=== PATIENT | female | born 1955 | race Caucasian/White ===

== ENCOUNTER 2018-01-18 13:55 | Observation (INO) ==
--- NOTE | 2018-01-18 14:19 | Emergency Department Note ---
ED Disposition Clinical Impression: Syncope Qualifiers: Syncope type: unspecified Qualified Code(s): R55 - Syncope and collapse Disposition: Admitted As Inpatient Condition on Discharge: Good - Critical Care Critical Care Time: No Attestation: On 01/18/18, the high probability of a clinically significant, sudden or life threatening deterioration of the following system(s) required my full and direct attention, intervention and personal management. The time I documented below is in addition to time spent performing reported procedures but includes the following listed in this critical care notation. Medical Decision Making - Medical Records Medical records reviewed: Yes: I reviewed the patient's medical records. - Pete Inquiry Pt receiving controlled substance: No Pete was queried for this patient: No Vital Signs: 01/18/18 13:56 01/18/18 15:03 01/18/18 15:30 Temperature 98.1 F Temperature Source Oral Pulse Rate [Right Brachial] 83 84 78 Respiratory Rate 18 20 18 Blood Pressure [Right Arm] 138/83 119/71 138/82 Blood Pressure Mean [Right Arm] 101 87 100 Blood Pressure Source [Right Arm] Automatic Cuff Automatic Cuff Automatic Cuff Blood Pressure Position [Right Arm] Supine Sitting Sitting 02 Sat by Pulse Oximetry 95 98 97 Oxygen Delivery Method Room Air Room Air Room Air - Lab Data Lab Results 01/18/18 14:15: WBC 6.7, RBC 5.23, Hgb 15.0, Hct 44.5, MCV 85.2, MCH 28.7, MCHC 33.7, RDW 13.7, Plt Count 216, MPV 8.9, Neut % (Auto) 62.9, Lymph % (Auto) 24.8 , [place] % (Auto) 9.5 H, Eos % (Auto) 1.8, Baso % (Auto) 0.9, Neut # (Auto) 4.2, Lymph # (Auto) 1.7, [place] # (Auto) 0.6, Eos # (Auto) 0.1, Baso # (Auto) 0.1 01/18/18 14:15: Sodium 136, Potassium 3.7, Chloride 100, Carbon Dioxide 27, Anion Gap 12.7, BUN 11, Creatinine 1.26 H, Estimated Creat Clear 78, Estimated GFR 43 L, Est GFR ( Amer) 52 L, Glucose 82, Calcium 9.6, Total Bilirubin 1.1 H, AST 45 H, ALT 29, Alkaline Phosphatase 108, Total Protein 7.5, Albumin 3.5, Globulin 4.0 H, Albumin/Globulin Ratio 0.9 L 01/18/18 14:15: Total Creatine Kinase 371 H, CK-MB (CK-2) 1.9, CK-MB (CK-2) Rel Index 0.5, Troponin I < 0.02 Result diagrams: 01/18/18 14:15 01/18/18 14:15 Orders (Tests/Meds): ED MEDICATIONS Generic Name Dose Route Start Last Admin Trade Name Freq PRN Reason Stop Dose Admin Potassium Chloride/Sodium Chloride 1,000 mls @ 75 mls/hr 01/18/18 16:30 Kcl 20 Meq In Ns 1,000 Ml Iv Soln IV 02/17/18 16:29 .[id number] FRANCOIS - Radiology Data #1 Image(s): Chest Image Reviewed: Yes I reviewed the patient's radiology results Preliminary Findings: Normal/NAD - CT Data CT Scan: Head, C-Spine Time Received: 15:[address] Reviewed: Yes: I have viewed the radiologist's interpretation Preliminary Findings: Normal/NAD - ECG Data Tracing #1 ECG initial impression date: 01/18/18 ECG initial impression time: 16:00 Normal Sinus Rhythm: Yes Ischemic changes: t wave inversions - Physician Consults Physician Consulted: Dr Kaufman Reason -: Admission Time: 16:24 Fall HPI - General Chief Complaint: Fall Stated Complaint: fall Time Seen by Provider: 01/18/18 16:24 Mode of Arrival: EMS Limitations: No Limitations Description of Symptoms (Recalled from ER Triage Doc. by RN): Pt fell at home lastnight at unknown time, pt reports her friend came over to check on her and found her in the floor. Pt reports she hurting all over especially her head. Pt reports she does not remember falling - History of Present Illness MD complaint: fall Onset (ago): day(s) (1) Fall from: standing Fall witnessed: no Place fall occurred: home Loss of consciousness: yes Prolonged down time: yes Symptoms prior to fall: none Location of injury: head, neck Severity: mild - Related Data Allergies Allergy/AdvReac Type Severity Reaction Status Date / Time Erythromycin Allergy Unknown Uncoded 09/01/17 14:59 From Penicillin V Potassium Allergy Unknown Uncoded 09/01/17 14:59 Penicillin Allergy Unknown Uncoded 09/01/17 14:59 [facility] History I have reviewed the patient's past medical history: Yes ROS Obtained: Yes All systems reviewed & no additional complaints - Musculoskeletal Musculoskeletal: Reports neck pain Physical Exam - General General appearance: alert, in no apparent distress - Head Head exam: atraumatic, normocephalic - Eye Eye exam: Present: normal appearance, PERRL, EOMI - ENT ENT exam: Present: normal exam - Chest Chest inspection: Present: normal inspection - Respiratory Respiratory exam: Present: normal lung sounds bilaterally. Absent: respiratory distress, wheezes - Cardiovascular Cardiovascular exam: Present: regular rate, normal rhythm - Abdominal Exam Abdominal exam: Present: soft. Absent: distention, tenderness - Extremities Exam Extremities exam: Present: normal inspection - Neurological Exam Neurological exam: Present: alert, oriented X3 - Skin Skin exam: Present: warm, dry, intact, normal color
[2018-01-18 14:29] LABS: Basophils # 0.1 K/mm3 (0-0.2); Basophils % 0.9 % (0.1-2.0); Eosinophils # 0.1 K/mm3 (0.0-0.4); Eosinophils % 1.8 % (0.1-12.0); Hematocrit 44.5 % (37.0-47.0); Lymphocytes # 1.7 K/mm3 (0.7-4.5); Lymphocytes % 24.8 K/mm3 (10-50); Mean Corpuscular HGB Conc 33.7 g/dL (31.8-35.4); Mean Corpuscular Hemoglobin 28.7 pg (27.0-31.2); Mean Corpuscular Volume 85.2 fl (81-99); Mean Platelet Volume 8.9 fl (7.4-10.4); Monocytes # 0.6 K/mm3 (0.1-1.0); Monocytes % 9.5 % (1.7-9.3); Neutrophils # 4.2 K/mm3 (1.8-7.8); Neutrophils % 62.9 % (37.0-80.0); Platelet Count 216 K/mm3 (142-424); Red Blood Count 5.23 M/mm3 (4.20-5.40); Red Cell Distribution Width 13.7 % (11.5-17.5); White Blood Count 6.7 K/mm3 (4.8-10.8)
[2018-01-18 14:53] LABS: Albumin Level 3.5 gm/dL (3.4-5.0); Albumin/Globulin Ratio 0.9 (1.1-1.8); Anion Gap 12.7 mEq/L (5-15); Bilirubin,Total 1.1 mg/dL (0.2-1.0); Calcium 9.6 mg/dL (8.5-10.1); Total Protein,Serum 7.5 gm/dL (6.4-8.2)
[2018-01-18 14:54] LABS: Potassium 3.7 mmoL/L (3.5-5.1)
[2018-01-18 14:55] LABS: Creatine Kinase 371 U/L (26-192)
[2018-01-18 17:15] LABS: Activated Partial Thrombo Time 33.4 seconds (23.6-34.0); INR 1.02 (0.9-1.1)
[2018-01-18 17:28] LABS: Creatine Kinase 334 U/L (26-192)
--- NOTE | 2018-01-18 17:40 | History & Physical Report ---
*Admission Date: 01/18/18 <Candy Owen 01/18/18 18:13> *Chief complaint: Fall <Candy Owen 01/18/18 18:13> *History of present illness: Ms Biggs is a 62 year old female with a history of HTN and Fibromyalgia who presented to [facility] ER via EMS after falling at home last night at an unknown time.. She tried to get up and was unable to do so. She cannot recall why she fell. She reports her friend came over to check on her and found her face down on the floor. Pt reports she is hurting all over and especially her head. She cannot remember having CP or SOB. She does not recall anything from the past few days. At the time of this exam she states her sides and knees are hurting. She deneis CP and SOB. With ER work up CT's are negative. She will admitted for further evaluation and treatment. <Candy Owen 01/18/18 18:13> [facility] History Medical History: Reports:: Cancer (brain and lung), Hypertension, Lung Disease Denies:: Asthma, Atherosclerotic Heart Disease, Congestive Heart Failure, Chronic Obstructive Pulmonary Disease (COPD), Coronary Artery Disease, Cerebrovascular Accident, Diabetes Mellitus Type 2, Gastroesophageal Reflux Disease(GERD), Gastrointestinal Bleed, Hyperlipidemia, Palpitations, Renal Insufficiency, Seizures <Candy Owen 01/18/18 18:13> Other Medical History: Reports: Arthritis, Chemotherapy, Fibromyalgia <Candy Owen 01/18/18 18:13> Comment: 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 She has been followed by her Kenny in [facility] with regular PET scans and has been cancer free <Candy Owen 01/18/18 18: 13> Other Surgeries: Yes: Appendectomy, Cancer Surgery, Cholecystectomy, Hysterectomy-Total (for endometriosis) <Candy Owen 01/18/18 18:13> - *Social History Educational Level: Completed College <Candy Owen 01/18/18 18:13> Tobacco Type: e-cigarettes <Candy Owen 01/18/18 18:13> Alcohol Intake: never <Candy Owen 01/18/18 18:13> Substance Use Type: denies use <Sheri Owenhy 01/18/18 18:13> Occupational Status: retired <BraydenCandy 01/18/18 18:13> Housing: house (lives alone) <Candy Owen 01/18/18 18:13> - Psychiatric History Expresses thoughts of harming self/others: None <Candy Owen 01/18/18 18: 13> Suicide Plan Description: No Plan <Candy Owen 01/18/18 18:13> *Family Hx:: Diabetes, no Coronary Artery Disease <Candy Owen 01/18/18 18 :13> Review of Systems - Constitutional Reports headache(s), Denies fever(s) <Candy Owen 01/18/18 18:13> - ENT Reports headache(s), Denies dizziness, Denies ear pain, Denies sore throat < Candy Owen 01/18/18 18:13> - *Cardiovascular Denies chest pain, Denies chest pain with activity, Denies shortness of breath, Denies irregular heart rhythm, Denies shortness of breath when lying down, Denies rapid, pounding, or irregular heartbeat <Candy Owen 01/18/18 18:13 > - *Respiratory Denies cough, Denies shortness of breath <Sheri Owenhy 01/18/18 18:13> - *Gastrointestinal Denies abdominal pain, Denies change in stools, Denies heartburn, Denies vomiting blood, Denies bright, red blood in stools, Denies black, tarry stools, Denies nausea, Denies vomiting <Candy Owen 01/18/18 18:13> - *Genitourinary Reports absent period, Reports urinary urgency, Reports other (urinary frequency ), Denies blood in urine, Denies pelvic pain <Candy Owen 01/18/18 18:13> - *Musculoskeletal Reports joint pain, Reports body aches (with FBM) <Candy Owen 01/18/18 18 :13> Comments: walks with a walker when tired <Candy Owen 01/18/18 18:13> - *Neurologic Reports headache(s), Reports memory loss, Reports weakness, Denies dizziness < Candy Owen - 01/18/18 18:13> Meds Allergies Allergy/AdvReac Type Severity Reaction Status Date / Time Erythromycin Allergy Unknown Uncoded 09/01/17 14:59 From Penicillin V Potassium Allergy Unknown Uncoded 09/01/17 14:59 Penicillin Allergy Unknown Uncoded 09/01/17 14:59 <Mukesh Kaufman - 01/18/18 20:08> Exam Vital signs and Labs for Last 24 Hours: Temp Pulse Resp BP Pulse Ox 97.9 F 87 18 98/81 96 01/18/18 17:42 01/18/18 17:42 01/18/18 17:42 01/18/18 17:42 01/18/18 17:42 Laboratory Results - last 24 hr 01/18/18 14:15: WBC 6.7, RBC 5.23, Hgb 15.0, Hct 44.5, MCV 85.2, MCH 28.7, MCHC 33.7, RDW 13.7, Plt Count 216, MPV 8.9, Neut % (Auto) 62.9, Lymph % (Auto) 24.8 , [place] % (Auto) 9.5 H, Eos % (Auto) 1.8, Baso % (Auto) 0.9, Neut # (Auto) 4.2, Lymph # (Auto) 1.7, [place] # (Auto) 0.6, Eos # (Auto) 0.1, Baso # (Auto) 0.1 01/18/18 14:15: Sodium 136, Potassium 3.7, Chloride 100, Carbon Dioxide 27, Anion Gap 12.7, BUN 11, Creatinine 1.26 H, Estimated Creat Clear 78, Estimated GFR 43 L, Est GFR ( Amer) 52 L, Glucose 82, Calcium 9.6, Total Bilirubin 1.1 H, AST 45 H, ALT 29, Alkaline Phosphatase 108, Total Protein 7.5, Albumin 3.5, Globulin 4.0 H, Albumin/Globulin Ratio 0.9 L 01/18/18 14:15: Total Creatine Kinase 371 H, CK-MB (CK-2) 1.9, CK-MB (CK-2) Rel Index 0.5, Troponin I < 0.02 01/18/18 17:00: PT 11.0, INR 1.02, APTT 33.4 01/18/18 17:00: Total Creatine Kinase 334 H, CK-MB (CK-2) 1.8, CK-MB (CK-2) Rel Index 0.5, Troponin I < 0.02 <LaneMukesh humphries - 01/18/18 20:08> Temp Pulse Resp BP Pulse Ox 97.9 F 85 18 105/73 97 01/18/18 17:09 01/18/18 17:09 01/18/18 17:09 01/18/18 17:09 01/18/18 15:30 Laboratory Results - last 24 hr 01/18/18 14:15: WBC 6.7, RBC 5.23, Hgb 15.0, Hct 44.5, MCV 85.2, MCH 28.7, MCHC 33.7, RDW 13.7, Plt Count 216, MPV 8.9, Neut % (Auto) 62.9, Lymph % (Auto) 24.8 , [place] % (Auto) 9.5 H, Eos % (Auto) 1.8, Baso % (Auto) 0.9, Neut # (Auto) 4.2, Lymph # (Auto) 1.7, [place] # (Auto) 0.6, Eos # (Auto) 0.1, Baso # (Auto) 0.1 01/18/18 14:15: Sodium 136, Potassium 3.7, Chloride 100, Carbon Dioxide 27, Anion Gap 12.7, BUN 11, Creatinine 1.26 H, Estimated Creat Clear 78, Estimated GFR 43 L, Est GFR ( Amer) 52 L, Glucose 82, Calcium 9.6, Total Bilirubin 1.1 H, AST 45 H, ALT 29, Alkaline Phosphatase 108, Total Protein 7.5, Albumin 3.5, Globulin 4.0 H, Albumin/Globulin Ratio 0.9 L 01/18/18 14:15: Total Creatine Kinase 371 H, CK-MB (CK-2) 1.9, CK-MB (CK-2) Rel Index 0.5, Troponin I < 0.02 01/18/18 17:00: PT 11.0, INR 1.02, APTT 33.4 01/18/18 17:00: Total Creatine Kinase 334 H, CK-MB (CK-2) 1.8, CK-MB (CK-2) Rel Index 0.5, Troponin I < 0.02 <BraydenCandy 01/18/18 18:13> I & O for Last 24 hours: Intake & Output 01/16/18 01/17/18 01/18/18 01/19/18 11:59 11:59 11:59 11:59 Weight 220 lb 4 oz <Mukesh Kaufman - 01/18/18 20:08> Intake & Output 01/16/18 01/17/18 01/18/18 01/19/18 11:59 11:59 11:59 11:59 Weight 230 lb <Candy Owen - 01/18/18 18:13> Radiology Reports for the Last 24 Hours: 01/18/18 CT of cervical spine IMPRESSION: 1. No acute fracture. 2. Multilevel cervical spondylosis with degenerative disc disease, facet and uncovertebral arthritic changes with lateral recess and foraminal narrowing as detailed above, canal stenosis at C5-C6 and C6-C7 worse at C6-C7 01/18/18 CXR IMPRESSION: No acute finding 01/18/18 CT of head/brain MPRESSION: 1. No acute finding. 2. Atrophy with chronic ischemic change. 3. Prior left occipital craniotomy with encephalomalacia change in the left cerebellar hemisphere X-ray of pelvis01/18/18 IMPRESSI ON: No acute finding <OwenCandy 01/18/18 18:13> - Constitutional no acute distress <Candy Owen 01/18/18 18:13> Comments: lying on stretcher and appears comfortable <Candy Owen 01/18/18 18:13> - *Routine HEENT Exam Head: Present: normocephalic, atraumatic <Candy Owen 01/18/18 18:13> Eye: Present: EOMI, PERRL. Absent: conjunctival icterus, scleral injection < Candy Owen 01/18/18 18:13> ENT: Present: mucous membranes moist, oropharynx clear <Candy Owen 18:13> - *Routine Neck Exam Present: supple. Absent: carotid bruit, lymphadenopathy, thyromegaly <Candy Owen 01/18/18 18:13> - *Routine Respiratory Exam Present: CTA bilaterally <Candy Owen - 01/18/18 18:13> - *Routine Cardiovascular Exam Present: RRR <Candy Owen 01/18/18 18:13> - *Routine Abdominal Exam Present: soft, normoactive bowel sounds, tenderness (SP). Absent: guarding < Candy Owen 01/18/18 18:13> - *Routine Extremities Exam Absent: edema, calf tenderness <Candy Owen 01/18/18 18:13> Comments: can barely lift bilaterl legs off the stretcher <Candy Owen 01/18/18 18:13> - *Routine Neurological Exam Present: alert, oriented X3, sensory deficit, motor deficit, plantar reflex, moving all extremities, normal speech (slow at times) <Candy Owen 18:13> memory loss <Candy Owen 01/18/18 18:13> H&P: Result - Labs Labs: Short CBC 01/18/18 Range/Units 14:15 WBC 6.7 (4.8-10.8) K/mm3 Hgb 15.0 (12.2-16.2) g/dL Hct 44.5 (37.0-47.0) % Plt Count 216 (142-424) K/mm3 BMP 01/18/18 14:15 Sodium 136 Potassium 3.7 Chloride 100 Carbon Dioxide 27 BUN 11 Creatinine 1.26 H Glucose 82 Calcium 9.6 Cardiac Enzymes 01/18/18 01/18/18 Range/Units 14:15 17:00 Total Creatine Kinase 371 H 334 H (26-192) U/L CK-MB (CK-2) 1.9 1.8 (0.0-3.6) ng/ml Troponin I < 0.02 < 0.02 (0.00-0.06) ng/ml Liver Function 01/18/18 Range/Units 14:15 Total Bilirubin 1.1 H (0.2-1.0) mg/dL AST 45 H (15-37) U/L ALT 29 (12-78) U/L Alkaline Phosphatase 108 (46-116) U/L Albumin 3.5 (3.4-5.0) gm/dL <Mukesh Kaufman - 01/18/18 20:08> Short CBC 01/18/18 Range/Units 14:15 WBC 6.7 (4.8-10.8) K/mm3 Hgb 15.0 (12.2-16.2) g/dL Hct 44.5 (37.0-47.0) % Plt Count 216 (142-424) K/mm3 BMP 01/18/18 14:15 Sodium 136 Potassium 3.7 Chloride 100 Carbon Dioxide 27 BUN 11 Creatinine 1.26 H Glucose 82 Calcium 9.6 Cardiac Enzymes 01/18/18 01/18/18 Range/Units 14:15 17:00 Total Creatine Kinase 371 H 334 H (26-192) U/L CK-MB (CK-2) 1.9 1.8 (0.0-3.6) ng/ml Troponin I < 0.02 < 0.02 (0.00-0.06) ng/ml Liver Function 01/18/18 Range/Units 14:15 Total Bilirubin 1.1 H (0.2-1.0) mg/dL AST 45 H (15-37) U/L ALT 29 (12-78) U/L Alkaline Phosphatase 108 (46-116) U/L Albumin 3.5 (3.4-5.0) gm/dL <Candy Owen - 01/18/18 18:13> Assessment and Plan (1) Syncope Current visit: Yes Status: Acute Qualifiers: Syncope type: unspecified Qualified Code(s): R55 - Syncope and collapse Category: Medical Code(s): R55 - Syncope and collapse (2) Fall Current visit: Yes Status: Acute Category: Medical Code(s): W19.XXXA - Unspecified fall, initial encounter (3) Memory deficit Current visit: Yes Status: Acute Category: Medical Code(s): R41.3 - Other amnesia (4) HTN (hypertension) Current visit: Yes Status: Chronic Category: Medical Code(s): I10 - Essential (primary) hypertension (5) Fibromyalgia Current visit: Yes Status: Chronic Category: Medical Code(s): M79.7 - Fibromyalgia <Mukesh Kaufman - 01/18/18 20:08> (1) Syncope Current visit: Yes Status: Acute Qualifiers: Syncope type: unspecified Qualified Code(s): R55 - Syncope and collapse Category: Medical Code(s): R55 - Syncope and collapse (2) Fall Current visit: Yes Status: Acute Category: Medical Code(s): W19.XXXA - Unspecified fall, initial encounter (3) Memory deficit Current visit: Yes Status: Acute Category: Medical Code(s): R41.3 - Other amnesia (4) HTN (hypertension) Current visit: Yes Status: Chronic Category: Medical Code(s): I10 - Essential (primary) hypertension (5) Fibromyalgia Current visit: Yes Status: Chronic Category: Medical Code(s): M79.7 - Fibromyalgia <Candy Owen - 01/18/18 17:33> - Assessment and plan all Dx Assessment and Plan for all problems:: Saw patient, agree with above note. <Mukesh Kaufman - 01/18/18 20:08> IVF;US of carotids; ECHO; durability engineer; monitor labs <Candy Owen - 01/18/18 18:13>
[2018-01-18 22:29] LABS: Creatine Kinase 286 U/L (26-192)
[2018-01-19 06:37] LABS: Basophils # 0.1 K/mm3 (0-0.2); Eosinophils # 0.2 K/mm3 (0.0-0.4); Eosinophils % 2.4 % (0.1-12.0); Hematocrit 46.6 % (37.0-47.0); Hemoglobin 15.5 g/dL (12.2-16.2); Lymphocytes # 2.2 K/mm3 (0.7-4.5); Mean Corpuscular HGB Conc 33.2 g/dL (31.8-35.4); Mean Corpuscular Hemoglobin 28.5 pg (27.0-31.2); Mean Platelet Volume 9.2 fl (7.4-10.4); Monocytes # 0.5 K/mm3 (0.1-1.0); Neutrophils # 3.5 K/mm3 (1.8-7.8); Neutrophils % 54.6 % (37.0-80.0); Platelet Count 255 K/mm3 (142-424); Red Blood Count 5.42 M/mm3 (4.20-5.40); Red Cell Distribution Width 13.8 % (11.5-17.5); White Blood Count 6.4 K/mm3 (4.8-10.8)
[2018-01-19 06:40] LABS: Anion Gap 11.7 mEq/L (5-15); Potassium 3.7 mmoL/L (3.5-5.1)
--- NOTE | 2018-01-19 07:20 | Pharmacy Consult Notes ---
[facility] Pharmacy VTE Monitoring - Patient Demographics Admission date: 01/18/18 Report Date: 01/19/18 Time: 07:19 Allergies/Adverse Reactions: Patient Allergies Erythromycin Allergy (Unknown, Uncoded 09/01/17 14:59) From Penicillin V Potassium Allergy (Unknown, Uncoded 09/01/17 14:59) Penicillin Allergy (Unknown, Uncoded 09/01/17 14:59) Height: 1.78 m Weight: 99.904 kg Patient Problems: Current Active Problems Syncope (Acute) Fall (Acute) HTN (hypertension) (Chronic) Fibromyalgia (Chronic) Memory deficit (Acute) - VTE Risk Labs: VTE Related Lab Results Hgb 15.5 g/dL (12.2-16.2) 01/19/18 06:02 Hct 46.6 % (37.0-47.0) 01/19/18 06:02 Plt Count 255 K/mm3 (142-424) 01/19/18 06:02 PT 11.0 seconds (9.4-11.8) 01/18/18 17:00 INR 1.02 (0.9-1.1) 01/18/18 17:00 APTT 33.4 seconds (23.6-34.0) 01/18/18 17:00 BUN 13 mg/dL (7-18) 01/19/18 06:02 Creatinine 1.41 mg/dL (0.55-1.02) H 01/19/18 06:02 Estimated Creat Clear 67 mL/min (0-300) 01/19/18 06:02 VTE Score: 4 VTE Risk Level: Low Risk - Prophylaxis VTE Prophylaxis Ordered?: Yes Types of VTE Prophylaxis: Pharmacological Pharmacologic Type: Enoxaparin - VTE Diagnosis Confirmed Treatment or plan recommended: Continue Current Treatment
--- NOTE | 2018-01-19 07:54 | Carotid Imaging Report ---
"Cerebrovascular Exam Indications: 780.2 Syncope and collapse. IMPRESSIONS Study suggests less than 20% stenosis involving the right internal carotid artery and the left internal carotid artery. Unable to visualize R Vertebral artery Carotid duplex study. Complete study and Doppler flow study including spectral analysis, color and myers scale imaging. Height: Height: 177.8cm. Height: 70in. Weight: Weight: 99.8kg. Weight: 219.5lb. Body mass index: BMI: 31.6kg/m^2. Body surface area: BSA: 2.25m^2. Location: Vascular laboratory. Patient status: Outpatient. Tables: Arterial flow: + +--------+---------+ |Location |V sys |V ed | + +--------+---------+ |Right CCA - proximal|69.9cm/s|14.9cm/s | + +--------+---------+ |Right CCA - distal |51.9cm/s|19.6cm/s | + +--------+---------+ |Right ECA |115cm/s |---------| + +--------+---------+ |Right ICA - proximal|40.2cm/s|17.6cm/s | + +--------+---------+ |Right ICA - mid |41.5cm/s|17.6cm/s | + +--------+---------+ |Right ICA - distal |51.5cm/s|-20.1cm/s| + +--------+---------+ |Left CCA - proximal |52.2cm/s|16.3cm/s | + +--------+---------+ |Left CCA - distal |44cm/s |14.5cm/s | + +--------+---------+ |Left ECA |95.5cm/s|---------| + +--------+---------+ |Left ICA - proximal |59.1cm/s|18.2cm/s | + +--------+---------+ |Left ICA - mid |46.5cm/s|16.3cm/s | + +--------+---------+ |Left ICA - distal |66.6cm/s|23.9cm/s | + +--------+---------+ |Left vertebral |43.4cm/s|---------| + +--------+---------+ Velocity ratios: + + + + + + | |Right, V sys|Right, V ed|Left, V sys|Left, V ed| + + + + + + |Max ICA/dist CCA|0.99 |0.9 |1.51 |1.65 | + + + + + + (Report amended ) Electronically signed by: Alex Pennington [id number]"
--- NOTE | 2018-01-19 08:04 | Consult Report ---
History of Present Illness Consult date: 01/19/18 Requesting physician: Mukesh Kaufman Chief complaint: Syncope Additional Medical History:: 1. History of lung and brain cancer A. Status post brain surgery approximately with chemo and radiation, last evaluation in [place], [place] in 2017 without recurrence. 2. History of tobacco use 1-1.5 packs per day 35+ years. 3. Fibromyalgia History of present illness: Ms Biggs is a 62 year old female with a history of HTN and Fibromyalgia who presented to [facility] ER via EMS after falling at home last night at an unknown time. She tried to get up and was unable to do so. She cannot recall why she fell. She reports her friend came over to check on her and found her face down on the floor. Pt reports she is hurting all over and especially her head. She cannot remember having CP or SOB. She does not recall anything from the past few days. At the time of this exam she states her sides and knees are hurting. She denies CP and SOB. With ER work up CT's are negative. She will admitted for further evaluation and treatment. The above per Candy Owen APRN for Dr. Kaufman. Patient denies any history of cardiac problems. She quit smoking 6 years ago with her diagnosis of lung cancer. Patient carries a diagnosis of hypertension but does not admit to that on questioning. She denies a history of diabetes. Patient is somewhat of a poor historian with inability to expand on previous workups or results. EKG shows sinus rhythm with T wave inversion anterolaterally when compared to EKG's from 2009, possibly LBBB pattern. [facility] History Medical History: Reports:: Cancer (brain and lung), Hypertension, Lung Disease Denies:: Asthma, Atherosclerotic Heart Disease, Congestive Heart Failure, Chronic Obstructive Pulmonary Disease (COPD), Coronary Artery Disease, Cerebrovascular Accident, Diabetes Mellitus Type 2, Gastroesophageal Reflux Disease(GERD), Gastrointestinal Bleed, Hyperlipidemia, Palpitations, Renal Insufficiency, Seizures Other Medical History: Reports: Arthritis, Chemotherapy, Fibromyalgia Other Surgeries: Yes: Appendectomy, Cancer Surgery, Cholecystectomy, Hysterectomy-Total (for endometriosis) - *Social History Educational Level: Completed College Smoking Status: Former smoker Tobacco Type: e-cigarettes Alcohol Intake: never Substance Use Type: denies use Occupational Status: retired Housing: house (lives alone) - Psychiatric History Expresses thoughts of harming self/others: None Suicide Plan Description: No Plan *Family Hx:: Diabetes, no Coronary Artery Disease Meds Home Medications Medication Instructions Recorded Confirmed Type predniSONE [Prednisone 5mg 5 mg PO DAILY 01/18/18 01/18/18 History Tab] Allergies Allergy/AdvReac Type Severity Reaction Status Date / Time erythromycin base Allergy Unknown Verified 01/19/18 07:40 allergy reaction Penicillins Allergy Unknown Verified 01/19/18 07:40 allergy reaction Review of Systems - Constitutional Reports malaise - *Cardiovascular Denies chest pain - *Respiratory Denies shortness of breath - *Gastrointestinal Denies abdominal pain - *Musculoskeletal Reports limited joint movement, Reports stiffness - *Neurologic Reports headache(s), Reports memory loss, Reports weakness, Denies dizziness Exam Vital signs and Labs for Last 24 Hours: Temp Pulse Resp BP Pulse Ox 98.9 F 91 H 17 109/62 94 L 01/19/18 07:44 01/19/18 07:44 01/19/18 07:44 01/19/18 07:44 01/19/18 07:44 Laboratory Results - last 24 hr 01/18/18 14:15: WBC 6.7, RBC 5.23, Hgb 15.0, Hct 44.5, MCV 85.2, MCH 28.7, MCHC 33.7, RDW 13.7, Plt Count 216, MPV 8.9, Neut % (Auto) 62.9, Lymph % (Auto) 24.8 , [place] % (Auto) 9.5 H, Eos % (Auto) 1.8, Baso % (Auto) 0.9, Neut # (Auto) 4.2, Lymph # (Auto) 1.7, [place] # (Auto) 0.6, Eos # (Auto) 0.1, Baso # (Auto) 0.1 01/18/18 14:15: Sodium 136, Potassium 3.7, Chloride 100, Carbon Dioxide 27, Anion Gap 12.7, BUN 11, Creatinine 1.26 H, Estimated Creat Clear 78, Estimated GFR 43 L, Est GFR ( Amer) 52 L, Glucose 82, Calcium 9.6, Total Bilirubin 1.1 H, AST 45 H, ALT 29, Alkaline Phosphatase 108, Total Protein 7.5, Albumin 3.5, Globulin 4.0 H, Albumin/Globulin Ratio 0.9 L 01/18/18 14:15: Total Creatine Kinase 371 H, CK-MB (CK-2) 1.9, CK-MB (CK-2) Rel Index 0.5, Troponin I < 0.02 01/18/18 17:00: PT 11.0, INR 1.02, APTT 33.4 01/18/18 17:00: Total Creatine Kinase 334 H, CK-MB (CK-2) 1.8, CK-MB (CK-2) Rel Index 0.5, Troponin I < 0.02 01/18/18 22:00: Total Creatine Kinase 286 H, CK-MB (CK-2) 1.2 D, CK-MB (CK-2) Rel Index 0.4, Troponin I < 0.02 01/19/18 06:02: WBC 6.4, RBC 5.42 H, Hgb 15.5, Hct 46.6, MCV 86.0, MCH 28.5, MCHC 33.2, RDW 13.8, Plt Count 255, MPV 9.2, Neut % (Auto) 54.6, Lymph % (Auto) 34.0, [place] % (Auto) 8.0, Eos % (Auto) 2.4, Baso % (Auto) 1.0, Neut # (Auto) 3.5 , Lymph # (Auto) 2.2, [place] # (Auto) 0.5, Eos # (Auto) 0.2, Baso # (Auto) 0.1 01/19/18 06:02: Sodium 139, Potassium 3.7, Chloride 104, Carbon Dioxide 27, Anion Gap 11.7, BUN 13, Creatinine 1.41 H, Estimated Creat Clear 67, Estimated GFR 38 L, Est GFR ( Amer) 46 L, Glucose 110 H D 01/19/18 06:02: TSH 3.46 I & O for Last 24 hours: Intake & Output 01/16/18 01/17/18 01/18/18 01/19/18 11:59 11:59 11:59 11:59 Intake Total 639 / 639 Balance 639 / 639 Weight 220 lb 4 oz - *Routine Neck Exam Absent: JVD, carotid bruit - *Routine Respiratory Exam Present: CTA bilaterally - *Routine Cardiovascular Exam Present: RRR. Absent: murmur, gallop - *Routine Extremities Exam Absent: edema - *Routine Neurological Exam Present: alert, moving all extremities Assessment and Plan (1) Syncope Current visit: Yes Status: Acute Qualifiers: Syncope type: unspecified Qualified Code(s): R55 - Syncope and collapse Category: Medical Code(s): R55 - Syncope and collapse (2) Fall Current visit: Yes Status: Acute Category: Medical Code(s): W19.XXXA - Unspecified fall, initial encounter (3) Memory deficit Current visit: Yes Status: Acute Category: Medical Code(s): R41.3 - Other amnesia (4) HTN (hypertension) Current visit: Yes Status: Chronic Category: Medical Code(s): I10 - Essential (primary) hypertension (5) Fibromyalgia Current visit: Yes Status: Chronic Category: Medical Code(s): M79.7 - Fibromyalgia - Assessment and plan all Dx Assessment and Plan for all problems:: With abnormal EKG, syncope and tobacco use history, will recommend proceeding with [facility] to evaluate CAD as a source for syncope. PRELIMINARY echo and carotid ultrasound are without significant abnormalities. Discussed with Dr. Salgado. Continue to monitor for arrhythmias on telemetry. Concern for seizure as source for syncope also.
--- NOTE | 2018-01-19 08:31 | Progress Note ---
<Candy Owen - Last Filed: 01/19/18 08:37> Internal Medicine - PN: Subj *Date: 01/19/18 *Time: 08:37 Interval history: Thinks she is better this morning. States she did sleep. She is n.p.o. today for possible cardiac cath. She did eat dinner last night without difficulty. Her back is bothering her. She still does not remember why she fell yesterday. Noted are some EKG changes. Cardiac enzymes have been normal. CPK has decreased. Exam Vital signs and Labs for Last 24 Hours: Temp Pulse Resp BP Pulse Ox 98.9 F 91 H 17 109/62 94 L 01/19/18 07:44 01/19/18 07:44 01/19/18 07:44 01/19/18 07:44 01/19/18 07:44 Laboratory Results - last 24 hr 01/18/18 14:15: WBC 6.7, RBC 5.23, Hgb 15.0, Hct 44.5, MCV 85.2, MCH 28.7, MCHC 33.7, RDW 13.7, Plt Count 216, MPV 8.9, Neut % (Auto) 62.9, Lymph % (Auto) 24.8 , [place] % (Auto) 9.5 H, Eos % (Auto) 1.8, Baso % (Auto) 0.9, Neut # (Auto) 4.2, Lymph # (Auto) 1.7, [place] # (Auto) 0.6, Eos # (Auto) 0.1, Baso # (Auto) 0.1 01/18/18 14:15: Sodium 136, Potassium 3.7, Chloride 100, Carbon Dioxide 27, Anion Gap 12.7, BUN 11, Creatinine 1.26 H, Estimated Creat Clear 78, Estimated GFR 43 L, Est GFR ( Amer) 52 L, Glucose 82, Calcium 9.6, Total Bilirubin 1.1 H, AST 45 H, ALT 29, Alkaline Phosphatase 108, Total Protein 7.5, Albumin 3.5, Globulin 4.0 H, Albumin/Globulin Ratio 0.9 L 01/18/18 14:15: Total Creatine Kinase 371 H, CK-MB (CK-2) 1.9, CK-MB (CK-2) Rel Index 0.5, Troponin I < 0.02 01/18/18 17:00: PT 11.0, INR 1.02, APTT 33.4 01/18/18 17:00: Total Creatine Kinase 334 H, CK-MB (CK-2) 1.8, CK-MB (CK-2) Rel Index 0.5, Troponin I < 0.02 01/18/18 22:00: Total Creatine Kinase 286 H, CK-MB (CK-2) 1.2 D, CK-MB (CK-2) Rel Index 0.4, Troponin I < 0.02 01/19/18 06:02: WBC 6.4, RBC 5.42 H, Hgb 15.5, Hct 46.6, MCV 86.0, MCH 28.5, MCHC 33.2, RDW 13.8, Plt Count 255, MPV 9.2, Neut % (Auto) 54.6, Lymph % (Auto) 34.0, [place] % (Auto) 8.0, Eos % (Auto) 2.4, Baso % (Auto) 1.0, Neut # (Auto) 3.5 , Lymph # (Auto) 2.2, [place] # (Auto) 0.5, Eos # (Auto) 0.2, Baso # (Auto) 0.1 01/19/18 06:02: Sodium 139, Potassium 3.7, Chloride 104, Carbon Dioxide 27, Anion Gap 11.7, BUN 13, Creatinine 1.41 H, Estimated Creat Clear 67, Estimated GFR 38 L, Est GFR ( Amer) 46 L, Glucose 110 H D 01/19/18 06:02: TSH 3.46 I & O for Last 24 hours: Intake & Output 01/16/18 01/17/18 01/18/18 01/19/18 11:59 11:59 11:59 11:59 Intake Total 639 / 639 Balance 639 / 639 Weight 220 lb 4 oz - Constitutional no acute distress - *Routine Respiratory Exam Present: CTA bilaterally (Anteriorly and posteriorly) - *Routine Cardiovascular Exam Present: RRR - *Routine Abdominal Exam Present: soft, normoactive bowel sounds. Absent: tenderness - *Routine Extremities Exam Present: pulses intact. Absent: edema, calf tenderness Comments: Can move her legs around better this morning ; can bend her at the knees. Still has difficulty raising the legs up off the bed. Moving her arms without difficulty. - *Routine Neurological Exam Present: alert, oriented X3 Assessment and Plan (1) Syncope Current visit: Yes Status: Acute Qualifiers: Syncope type: unspecified Qualified Code(s): R55 - Syncope and collapse Category: Medical Code(s): R55 - Syncope and collapse (2) Fall Current visit: Yes Status: Acute Category: Medical Code(s): W19.XXXA - Unspecified fall, initial encounter (3) Memory deficit Current visit: Yes Status: Acute Category: Medical Code(s): R41.3 - Other amnesia (4) HTN (hypertension) Current visit: Yes Status: Chronic Category: Medical Code(s): I10 - Essential (primary) hypertension (5) Fibromyalgia Current visit: Yes Status: Chronic Category: Medical Code(s): M79.7 - Fibromyalgia (6) Rhabdomyolysis Current visit: Yes Status: Acute Category: Medical Code(s): M62.82 - Rhabdomyolysis (7) Acute electrocardiogram changes Current visit: Yes Status: Acute Category: Medical Code(s): R94.31 - Abnormal electrocardiogram [ECG] [EKG] - Assessment and plan all Dx Assessment and Plan for all problems:: Patient has been seen by cardiology and will have a cardiac cath this morning. PT consult in the future. <Mukesh Kaufman - Last Filed: 01/19/18 09:03> Internal Medicine - PN: Subj *Date: 01/19/18 *Time: 09:00 Exam Vital signs and Labs for Last 24 Hours: Temp Pulse Resp BP Pulse Ox 98.9 F 91 H 17 109/62 94 L 01/19/18 07:44 01/19/18 07:44 01/19/18 07:44 01/19/18 07:44 01/19/18 07:44 Laboratory Results - last 24 hr 01/18/18 14:15: WBC 6.7, RBC 5.23, Hgb 15.0, Hct 44.5, MCV 85.2, MCH 28.7, MCHC 33.7, RDW 13.7, Plt Count 216, MPV 8.9, Neut % (Auto) 62.9, Lymph % (Auto) 24.8 , [place] % (Auto) 9.5 H, Eos % (Auto) 1.8, Baso % (Auto) 0.9, Neut # (Auto) 4.2, Lymph # (Auto) 1.7, [place] # (Auto) 0.6, Eos # (Auto) 0.1, Baso # (Auto) 0.1 01/18/18 14:15: Sodium 136, Potassium 3.7, Chloride 100, Carbon Dioxide 27, Anion Gap 12.7, BUN 11, Creatinine 1.26 H, Estimated Creat Clear 78, Estimated GFR 43 L, Est GFR ( Amer) 52 L, Glucose 82, Calcium 9.6, Total Bilirubin 1.1 H, AST 45 H, ALT 29, Alkaline Phosphatase 108, Total Protein 7.5, Albumin 3.5, Globulin 4.0 H, Albumin/Globulin Ratio 0.9 L 01/18/18 14:15: Total Creatine Kinase 371 H, CK-MB (CK-2) 1.9, CK-MB (CK-2) Rel Index 0.5, Troponin I < 0.02 01/18/18 17:00: PT 11.0, INR 1.02, APTT 33.4 01/18/18 17:00: Total Creatine Kinase 334 H, CK-MB (CK-2) 1.8, CK-MB (CK-2) Rel Index 0.5, Troponin I < 0.02 01/18/18 22:00: Total Creatine Kinase 286 H, CK-MB (CK-2) 1.2 D, CK-MB (CK-2) Rel Index 0.4, Troponin I < 0.02 01/19/18 06:02: WBC 6.4, RBC 5.42 H, Hgb 15.5, Hct 46.6, MCV 86.0, MCH 28.5, MCHC 33.2, RDW 13.8, Plt Count 255, MPV 9.2, Neut % (Auto) 54.6, Lymph % (Auto) 34.0, [place] % (Auto) 8.0, Eos % (Auto) 2.4, Baso % (Auto) 1.0, Neut # (Auto) 3.5 , Lymph # (Auto) 2.2, [place] # (Auto) 0.5, Eos # (Auto) 0.2, Baso # (Auto) 0.1 01/19/18 06:02: Sodium 139, Potassium 3.7, Chloride 104, Carbon Dioxide 27, Anion Gap 11.7, BUN 13, Creatinine 1.41 H, Estimated Creat Clear 67, Estimated GFR 38 L, Est GFR ( Amer) 46 L, Glucose 110 H D 01/19/18 06:02: TSH 3.46 I & O for Last 24 hours: Intake & Output 01/16/18 01/17/18 01/18/18 01/19/18 11:59 11:59 11:59 11:59 Intake Total 639 / 639 Balance 639 / 639 Weight 220 lb 4 oz Assessment and Plan (1) Syncope Current visit: Yes Status: Acute Qualifiers: Syncope type: unspecified Qualified Code(s): R55 - Syncope and collapse Category: Medical Code(s): R55 - Syncope and collapse (2) Fall Current visit: Yes Status: Acute Category: Medical Code(s): W19.XXXA - Unspecified fall, initial encounter (3) Memory deficit Current visit: Yes Status: Acute Category: Medical Code(s): R41.3 - Other amnesia (4) HTN (hypertension) Current visit: Yes Status: Chronic Category: Medical Code(s): I10 - Essential (primary) hypertension (5) Fibromyalgia Current visit: Yes Status: Chronic Category: Medical Code(s): M79.7 - Fibromyalgia (6) Rhabdomyolysis Current visit: Yes Status: Acute Category: Medical Code(s): M62.82 - Rhabdomyolysis (7) Acute electrocardiogram changes Current visit: Yes Status: Acute Category: Medical Code(s): R94.31 - Abnormal electrocardiogram [ECG] [EKG] - Assessment and plan all Dx Assessment and Plan for all problems:: Saw patient agree with above note, will attempt to confirm home medications with pharmacy in [place].
[2018-01-19 20:24] LABS: Microscopic, Urine URINE MICROSCOPIC (MICROSCOPIC)
[2018-01-19 20:31] LABS: Appearance,Urine CLEAR (Clear); Blood, Urine Negative (Negative); Color,Urine YELLOW (Yellow); Glucose,Urine (UA) Negative (Negative); Ketones,Urine 1+ (Negative); Leukocyte Esterase,Urine 1+ (Negative); Protein,Urine TRACE (Negative); Urobilinogen,Urine 0.2 EU/dl (0.2)
[2018-01-19 20:41] LABS: Bilirubin,Urine Negative (Negative)
[2018-01-19 20:42] LABS: Bacteria,Urine Trace /lpf; Hyaline Casts,Urine Occasional #/lpf (0); WBC,Urine 50-100 #/hpf (0-3)
--- NOTE | 2018-01-19 21:03 | Cardiology Report ---
PROCEDURE: 2-D M-mode and color Doppler study INDICATIONS FOR THE TEST: Chest pain COPD Heart Murmur Tobacco Smoking Palpitations Fatigue SyncopeX Edema HypertensionXDiabetes Mellitus Rheumatic Fever SOB KENT Obesity Hyperlipidemia Family History HD Additional History H/O LUNG CA METS TO BRAIN TDS SECONDARY TO PT POSITIONING PATIENT INFORMATION HEIGHT: 70 WEIGHT:220 GENDER: Female B/P:105/73 2-D/M-MODE INTERPRETATION: 2-D MEASUREMENTS OBSERVED VALUES IN CMS Right Ventricular Dimension (RVDd) 2.0 Interventricular Septum (Thickness)(IVsd) .9 Left Ventricular Internal Dimensions(LVIDd) 5.0 Left Ventricular Posterior Wall (Thickness)(LVPWd) 1.0 Aortic Root 3.0 Aortic Cusp Separation 1.9 Left Atrial Dimensions (LAD) 3.0 2D 1. Left atrium is qualitatively mildly enlarged, left ventricle is normal size, mild concentric left ventricular hypertrophy, visually estimated ejection fraction 55% with no obvious regional wall motion abnormality. 2. The right atrium and right ventricle are normal size and contractility. 3. The aortic valve is minimally thickened and calcified. 4. The mitral and tricuspid valve leaflets are minimally thickened. 5. The pulmonic valve is poorly visualized. 6. No significant pericardial effusion noted. DOPPLER INTERROGATION: Doppler interrogation of the aortic, mitral and tricuspid valvular presence of mild mitral and tricuspid regurgitation, tricuspid and jet velocity insufficient for calculation of the right ventricular systolic pressure, grade 1 diastolic dysfunction seen with tissue Doppler evidence of raised left atrial pressure. CONCLUSION: 1. Mildly enlarged left atrium, normal left ventricular size, mild concentric left ventricular hypertrophy, visually estimated ejection fraction 55% with no obvious regional wall motion abnormality, grade 1 diastolic dysfunction seen with tissue Doppler evidence of raised left atrial pressure. 2. Mild mitral and tricuspid regurgitation. 3. No significant pericardial effusion noted.
--- NOTE | 2018-01-20 08:15 | Progress Note ---
<Adrienne Ryan - Last Filed: 01/20/18 08:11> Internal Medicine - PN: Subj *Date: 01/20/18 *Time: 08:11 Interval history: Patient still feels poorly today. She states she hurts all over. She did not rest well last night. She states she is hungry and would like food this a.m. Exam Vital signs and Labs for Last 24 Hours: Temp Pulse Resp BP Pulse Ox 98.5 F 86 20 132/79 95 01/20/18 07:54 01/20/18 07:54 01/20/18 07:54 01/20/18 07:54 01/20/18 07:54 Laboratory Results - last 24 hr 01/19/18 20:20: Urine Color Yellow, Urine Appearance Clear, Urine pH 6.0, Ur Specific [place] 1.020, Urine Protein Trace, Urine Glucose (UA) Negative, Urine Ketones 1+, Urine Blood Negative, Urine Nitrate Negative, Urine Bilirubin Negative, Urine Urobilinogen 0.2, Ur Leukocyte Esterase 1+ A, Urine WBC 50-100, Ur Squamous Epith Cells 3-5, Urine Bacteria Trace, Hyaline Casts Occasional I & O for Last 24 hours: Intake & Output 01/17/18 01/18/18 01/19/18 01/20/18 11:59 11:59 11:59 11:59 Intake Total 639 / 639 582 / 582 Balance 639 / 639 582 / 582 Weight 220 lb 4 oz Radiology Reports for the Last 24 Hours: Heart cath-normal Carotid duplex-less than 20% stenosis bilaterally Echo-55% ejection fraction - Constitutional no acute distress - *Routine Respiratory Exam Present: CTA bilaterally - *Routine Cardiovascular Exam Present: RRR - *Routine Abdominal Exam Present: soft, normoactive bowel sounds, tenderness (diffuse) - *Routine Extremities Exam Absent: edema Assessment and Plan (1) Syncope Current visit: Yes Status: Acute Qualifiers: Syncope type: unspecified Qualified Code(s): R55 - Syncope and collapse Category: Medical Code(s): R55 - Syncope and collapse (2) Fall Current visit: Yes Status: Acute Category: Medical Code(s): W19.XXXA - Unspecified fall, initial encounter (3) Memory deficit Current visit: Yes Status: Acute Category: Medical Code(s): R41.3 - Other amnesia (4) HTN (hypertension) Current visit: Yes Status: Chronic Category: Medical Code(s): I10 - Essential (primary) hypertension (5) Fibromyalgia Current visit: Yes Status: Chronic Category: Medical Code(s): M79.7 - Fibromyalgia (6) Rhabdomyolysis Current visit: Yes Status: Acute Category: Medical Code(s): M62.82 - Rhabdomyolysis (7) Acute electrocardiogram changes Current visit: Yes Status: Acute Category: Medical Code(s): R94.31 - Abnormal electrocardiogram [ECG] [EKG] - Assessment and plan all Dx Assessment and Plan for all problems:: Patient's heart cath was normal. Her echo showed an EF of 55% and her carotid duplex was normal. Discuss further care with Dr. Kaufman. <Mukesh Kaufman - Last Filed: 01/20/18 08:45> Internal Medicine - PN: Subj *Date: 01/20/18 *Time: 08:45 Exam Vital signs and Labs for Last 24 Hours: Temp Pulse Resp BP Pulse Ox 98.5 F 86 20 132/79 95 01/20/18 07:54 01/20/18 07:54 01/20/18 07:54 01/20/18 07:54 01/20/18 07:54 Laboratory Results - last 24 hr 01/19/18 20:20: Urine Color Yellow, Urine Appearance Clear, Urine pH 6.0, Ur Specific [place] 1.020, Urine Protein Trace, Urine Glucose (UA) Negative, Urine Ketones 1+, Urine Blood Negative, Urine Nitrate Negative, Urine Bilirubin Negative, Urine Urobilinogen 0.2, Ur Leukocyte Esterase 1+ A, Urine WBC 50-100, Ur Squamous Epith Cells 3-5, Urine Bacteria Trace, Hyaline Casts Occasional I & O for Last 24 hours: Intake & Output 01/17/18 01/18/18 01/19/18 01/20/18 11:59 11:59 11:59 11:59 Intake Total 639 / 639 582 / 582 Balance 639 / 639 582 / 582 Weight 220 lb 4 oz Assessment and Plan (1) Syncope Current visit: Yes Status: Acute Qualifiers: Syncope type: unspecified Qualified Code(s): R55 - Syncope and collapse Category: Medical Code(s): R55 - Syncope and collapse (2) Fall Current visit: Yes Status: Acute Category: Medical Code(s): W19.XXXA - Unspecified fall, initial encounter (3) Memory deficit Current visit: Yes Status: Acute Category: Medical Code(s): R41.3 - Other amnesia (4) HTN (hypertension) Current visit: Yes Status: Chronic Category: Medical Code(s): I10 - Essential (primary) hypertension (5) Fibromyalgia Current visit: Yes Status: Chronic Category: Medical Code(s): M79.7 - Fibromyalgia (6) Rhabdomyolysis Current visit: Yes Status: Acute Category: Medical Code(s): M62.82 - Rhabdomyolysis (7) Acute electrocardiogram changes Current visit: Yes Status: Acute Category: Medical Code(s): R94.31 - Abnormal electrocardiogram [ECG] [EKG] - Assessment and plan all Dx Assessment and Plan for all problems:: Saw patient, agree with above note. PT to see patient today.
[2018-01-20 12:55] LABS: Anion Gap 10.1 mEq/L (5-15); Potassium 4.1 mmoL/L (3.5-5.1)
--- NOTE | 2018-01-20 14:10 | Progress Note ---
Subjective Date: 01/20/18 Time: 14:09 Principal diagnosis: syncope Interval history: 62 yo WF in bed in NAD. No syncope during hospitalization. No arrhythmias on telemetry. Exam Vital signs and Labs for Last 24 Hours: Temp Pulse Resp BP Pulse Ox 98.0 F 85 18 128/78 94 L 01/20/18 11:35 01/20/18 11:35 01/20/18 11:35 01/20/18 11:35 01/20/18 11:35 Laboratory Results - last 24 hr 01/19/18 20:20: Urine Color Yellow, Urine Appearance Clear, Urine pH 6.0, Ur Specific [place] 1.020, Urine Protein Trace, Urine Glucose (UA) Negative, Urine Ketones 1+, Urine Blood Negative, Urine Nitrate Negative, Urine Bilirubin Negative, Urine Urobilinogen 0.2, Ur Leukocyte Esterase 1+ A, Urine WBC 50-100, Ur Squamous Epith Cells 3-5, Urine Bacteria Trace, Hyaline Casts Occasional 01/20/18 12:30: Sodium 143, Potassium 4.1, Chloride 107, Carbon Dioxide 30, Anion Gap 10.1, BUN 9 D, Creatinine 1.27 H, Estimated Creat Clear 74, Estimated GFR 43 L, Est GFR ( Amer) 52 L, Glucose 97 I & O for Last 24 hours: Intake & Output 01/18/18 01/19/18 01/20/18 01/21/18 11:59 11:59 11:59 11:59 Intake Total 639 / 639 582 / 582 Balance 639 / 639 582 / 582 Weight 220 lb 4 oz - *Routine Respiratory Exam Present: CTA bilaterally - *Routine Cardiovascular Exam Present: RRR Progress Note: A&P (1) Syncope Status: Acute Current Visit: Yes (2) Fall Status: Acute Current Visit: Yes (3) Memory deficit Status: Acute Current Visit: Yes (4) HTN (hypertension) Status: Chronic Current Visit: Yes (5) Fibromyalgia Status: Chronic Current Visit: Yes (6) Rhabdomyolysis Status: Acute Current Visit: Yes (7) Acute electrocardiogram changes Status: Acute Current Visit: Yes Assessment and Plan for All Diagnoses:: Will stop statin for possible source of myalgias. Discussed with PCP, CT of chest to be ordered to rule out PE as source for syncope and if negative then will stop lovenox. No cardiac etiology for syncope at this time.
[2018-01-21 07:27] LABS: Basophils # 0.1 K/mm3 (0-0.2); Basophils % 0.8 % (0.1-2.0); Eosinophils # 0.2 K/mm3 (0.0-0.4); Eosinophils % 3.3 % (0.1-12.0); Hematocrit 40.5 % (37.0-47.0); Hemoglobin 13.5 g/dL (12.2-16.2); Lymphocytes # 2.1 K/mm3 (0.7-4.5); Lymphocytes % 37.8 K/mm3 (10-50); Mean Corpuscular HGB Conc 33.4 g/dL (31.8-35.4); Mean Corpuscular Hemoglobin 28.6 pg (27.0-31.2); Mean Corpuscular Volume 85.7 fl (81-99); Mean Platelet Volume 9.1 fl (7.4-10.4); Monocytes # 0.4 K/mm3 (0.1-1.0); Monocytes % 7.3 % (1.7-9.3); Neutrophils # 2.8 K/mm3 (1.8-7.8); Neutrophils % 50.8 % (37.0-80.0); Platelet Count 223 K/mm3 (142-424); Red Blood Count 4.72 M/mm3 (4.20-5.40); Red Cell Distribution Width 13.8 % (11.5-17.5); White Blood Count 5.5 K/mm3 (4.8-10.8)
[2018-01-21 07:39] LABS: Anion Gap 13.8 mEq/L (5-15); Potassium 3.8 mmoL/L (3.5-5.1)
--- NOTE | 2018-01-21 08:15 | Progress Note ---
<Adrienne Ryan - Last Filed: 01/21/18 08:12> Internal Medicine - PN: Subj *Date: 01/21/18 *Time: 08:12 Interval history: Patient states she is still not feeling well this a.m. She is complaining of a headache and some stomach pain. She states her whole body still aches. She is requesting an aspirin for her head. She is unsure if she slept throughout the night. Exam Vital signs and Labs for Last 24 Hours: Temp Pulse Resp BP Pulse Ox 98.2 F 86 18 153/74 95 01/21/18 07:52 01/21/18 07:52 01/21/18 07:52 01/21/18 07:52 01/21/18 07:52 Laboratory Results - last 24 hr 01/20/18 12:30: Sodium 143, Potassium 4.1, Chloride 107, Carbon Dioxide 30, Anion Gap 10.1, BUN 9 D, Creatinine 1.27 H, Estimated Creat Clear 74, Estimated GFR 43 L, Est GFR ( Amer) 52 L, Glucose 97 01/21/18 06:50: WBC 5.5, RBC 4.72, Hgb 13.5, Hct 40.5, MCV 85.7, MCH 28.6, MCHC 33.4, RDW 13.8, Plt Count 223, MPV 9.1, Neut % (Auto) 50.8, Lymph % (Auto) 37.8 , [place] % (Auto) 7.3, Eos % (Auto) 3.3, Baso % (Auto) 0.8, Neut # (Auto) 2.8, Lymph # (Auto) 2.1, [place] # (Auto) 0.4, Eos # (Auto) 0.2, Baso # (Auto) 0.1 01/21/18 06:50: Sodium 144, Potassium 3.8, Chloride 105, Carbon Dioxide 29, Anion Gap 13.8, BUN 7, Creatinine 1.27 H, Estimated Creat Clear 74, Estimated GFR 43 L, Est GFR ( Amer) 52 L, Glucose 90 I & O for Last 24 hours: Intake & Output 01/18/18 01/19/18 01/20/18 01/21/18 11:59 11:59 11:59 11:59 Intake Total 639 / 639 582 / 582 1626 / 1626 Balance 639 / 639 582 / 582 1626 / 1626 Weight 220 lb 4 oz Microbiology Reports for the Last 24 Hours: Microbiology 01/19/18 20:20 Urine,Clean Catch Urine Culture - Preliminary NO GROWTH AFTER 24 HOURS - Constitutional no acute distress - *Routine Respiratory Exam Present: CTA bilaterally - *Routine Cardiovascular Exam Present: RRR - *Routine Abdominal Exam Present: soft, normoactive bowel sounds, tenderness (left upper and lower quadrants) - *Routine Extremities Exam Absent: edema Assessment and Plan (1) Syncope Current visit: Yes Status: Acute Qualifiers: Syncope type: unspecified Qualified Code(s): R55 - Syncope and collapse Category: Medical Code(s): R55 - Syncope and collapse (2) Fall Current visit: Yes Status: Acute Category: Medical Code(s): W19.XXXA - Unspecified fall, initial encounter (3) Memory deficit Current visit: Yes Status: Acute Category: Medical Code(s): R41.3 - Other amnesia (4) HTN (hypertension) Current visit: Yes Status: Chronic Category: Medical Code(s): I10 - Essential (primary) hypertension (5) Fibromyalgia Current visit: Yes Status: Chronic Category: Medical Code(s): M79.7 - Fibromyalgia (6) Rhabdomyolysis Current visit: Yes Status: Acute Category: Medical Code(s): M62.82 - Rhabdomyolysis (7) Acute electrocardiogram changes Current visit: Yes Status: Acute Category: Medical Code(s): R94.31 - Abnormal electrocardiogram [ECG] [EKG] - Assessment and plan all Dx Assessment and Plan for all problems:: Will start on ASA for her DINH. Will discuss rehab with care management and the patient as PT felt she would need short term rehab placement. <Mukesh Kaufman - Last Filed: 01/21/18 10:11> Internal Medicine - PN: Subj *Date: 01/21/18 *Time: 10:10 Exam Vital signs and Labs for Last 24 Hours: Temp Pulse Resp BP Pulse Ox 98.2 F 90 18 153/74 95 01/21/18 07:52 01/21/18 08:00 01/21/18 07:52 01/21/18 07:52 01/21/18 07:52 Laboratory Results - last 24 hr 01/20/18 12:30: Sodium 143, Potassium 4.1, Chloride 107, Carbon Dioxide 30, Anion Gap 10.1, BUN 9 D, Creatinine 1.27 H, Estimated Creat Clear 74, Estimated GFR 43 L, Est GFR ( Amer) 52 L, Glucose 97 01/21/18 06:50: WBC 5.5, RBC 4.72, Hgb 13.5, Hct 40.5, MCV 85.7, MCH 28.6, MCHC 33.4, RDW 13.8, Plt Count 223, MPV 9.1, Neut % (Auto) 50.8, Lymph % (Auto) 37.8 , [place] % (Auto) 7.3, Eos % (Auto) 3.3, Baso % (Auto) 0.8, Neut # (Auto) 2.8, Lymph # (Auto) 2.1, [place] # (Auto) 0.4, Eos # (Auto) 0.2, Baso # (Auto) 0.1 01/21/18 06:50: Sodium 144, Potassium 3.8, Chloride 105, Carbon Dioxide 29, Anion Gap 13.8, BUN 7, Creatinine 1.27 H, Estimated Creat Clear 74, Estimated GFR 43 L, Est GFR ( Amer) 52 L, Glucose 90 I & O for Last 24 hours: Intake & Output 01/18/18 01/19/18 01/20/18 01/21/18 11:59 11:59 11:59 11:59 Intake Total 639 / 639 582 / 582 1626 / 1626 Balance 639 / 639 582 / 582 1626 / 1626 Weight 220 lb 4 oz Microbiology Reports for the Last 24 Hours: Microbiology 01/19/18 20:20 Urine,Clean Catch Urine Culture - Preliminary NO GROWTH AFTER 24 HOURS Assessment and Plan (1) Syncope Current visit: Yes Status: Acute Qualifiers: Syncope type: unspecified Qualified Code(s): R55 - Syncope and collapse Category: Medical Code(s): R55 - Syncope and collapse (2) Fall Current visit: Yes Status: Acute Category: Medical Code(s): W19.XXXA - Unspecified fall, initial encounter (3) Memory deficit Current visit: Yes Status: Acute Category: Medical Code(s): R41.3 - Other amnesia (4) HTN (hypertension) Current visit: Yes Status: Chronic Category: Medical Code(s): I10 - Essential (primary) hypertension (5) Fibromyalgia Current visit: Yes Status: Chronic Category: Medical Code(s): M79.7 - Fibromyalgia (6) Rhabdomyolysis Current visit: Yes Status: Acute Category: Medical Code(s): M62.82 - Rhabdomyolysis (7) Acute electrocardiogram changes Current visit: Yes Status: Acute Category: Medical Code(s): R94.31 - Abnormal electrocardiogram [ECG] [EKG] - Assessment and plan all Dx Assessment and Plan for all problems:: Saw patient agree with above note, stop Lovenox today due to neg CT chest, care management working on post hospital rehab.
--- NOTE | 2018-01-21 17:59 | Progress Note ---
Internal Medicine - PN: Subj *Date: 01/21/18 *Time: 17:55 Interval history: Discussed discharge plan with patient and her friend. At this point patient does not want to go to a residential facility for rehab due to the upcoming Mother's day holiday. She currently lives alone and does not have anyone who can stay with her. She reports that her son is supposed to come to town in 3 days and she would like to stay in the hospital until then. Spoke to care management. They had a different understanding of patient's plan. They understood patient would have someone staying with her at night and checking on her frequently during the day and she would have home health physical therapy. Exam Vital signs and Labs for Last 24 Hours: Temp Pulse Resp BP Pulse Ox 97.6 F 87 18 124/65 96 01/21/18 15:36 01/21/18 15:36 01/21/18 15:36 01/21/18 15:36 01/21/18 15:36 Laboratory Results - last 24 hr 01/21/18 06:50: WBC 5.5, RBC 4.72, Hgb 13.5, Hct 40.5, MCV 85.7, MCH 28.6, MCHC 33.4, RDW 13.8, Plt Count 223, MPV 9.1, Neut % (Auto) 50.8, Lymph % (Auto) 37.8 , [place] % (Auto) 7.3, Eos % (Auto) 3.3, Baso % (Auto) 0.8, Neut # (Auto) 2.8, Lymph # (Auto) 2.1, [place] # (Auto) 0.4, Eos # (Auto) 0.2, Baso # (Auto) 0.1 01/21/18 06:50: Sodium 144, Potassium 3.8, Chloride 105, Carbon Dioxide 29, Anion Gap 13.8, BUN 7, Creatinine 1.27 H, Estimated Creat Clear 74, Estimated GFR 43 L, Est GFR ( Amer) 52 L, Glucose 90 I & O for Last 24 hours: Intake & Output 01/19/18 01/20/18 01/21/18 01/22/18 11:59 11:59 11:59 11:59 Intake Total 639 / 639 582 / 582 1626 / 1626 480 / 480 Output Total 600 / 600 Balance 639 / 639 582 / 582 1026 / 1026 480 / 480 Weight 220 lb 4 oz Microbiology Reports for the Last 24 Hours: Microbiology 01/19/18 20:20 Urine,Clean Catch Urine Culture - Preliminary NO GROWTH AFTER 24 HOURS Assessment and Plan (1) Syncope Current visit: Yes Status: Acute Qualifiers: Syncope type: unspecified Qualified Code(s): R55 - Syncope and collapse Category: Medical Code(s): R55 - Syncope and collapse (2) Fall Current visit: Yes Status: Acute Category: Medical Code(s): W19.XXXA - Unspecified fall, initial encounter (3) Memory deficit Current visit: Yes Status: Acute Category: Medical Code(s): R41.3 - Other amnesia (4) HTN (hypertension) Current visit: Yes Status: Chronic Category: Medical Code(s): I10 - Essential (primary) hypertension (5) Fibromyalgia Current visit: Yes Status: Chronic Category: Medical Code(s): M79.7 - Fibromyalgia (6) Rhabdomyolysis Current visit: Yes Status: Acute Category: Medical Code(s): M62.82 - Rhabdomyolysis (7) Acute electrocardiogram changes Current visit: Yes Status: Acute Category: Medical Code(s): R94.31 - Abnormal electrocardiogram [ECG] [EKG] - Assessment and plan all Dx Assessment and Plan for all problems:: Patient has definitely improved since admission. She ambulates slowly with a walker. She really needs near around the clock supervision. Will discuss discharge plan further with care management tomorrow.
--- NOTE | 2018-01-22 08:15 | Progress Note ---
<Adrienne Ryan - Last Filed: 01/22/18 08:12> Internal Medicine - PN: Subj *Date: 01/22/18 *Time: 08:12 Interval history: Patient states she is not satisfied with the care she is getting at the hospital. She states she does not know why she is still here. She states her headache is better and her body aches have improved. She was unable to sleep because people kept "bothering her all night." She refuses to see therapy because she said they did nothing for her yesterday. She wants to go home. Exam Vital signs and Labs for Last 24 Hours: Temp Pulse Resp BP Pulse Ox 98.5 F 83 22 140/56 95 01/22/18 04:00 01/22/18 04:00 01/22/18 04:00 01/22/18 04:00 01/22/18 04:00 I & O for Last 24 hours: Intake & Output 01/19/18 01/20/18 01/21/18 01/22/18 11:59 11:59 11:59 11:59 Intake Total 639 / 639 582 / 582 1626 / 1626 720 / 720 Output Total 600 / 600 Balance 639 / 639 582 / 582 1026 / 1026 720 / 720 Weight 220 lb 4 oz Microbiology Reports for the Last 24 Hours: Microbiology 01/19/18 20:20 Urine,Clean Catch Urine Culture - Final NO GROWTH AFTER 48 HOURS - Constitutional no acute distress - *Routine Respiratory Exam Present: CTA bilaterally - *Routine Cardiovascular Exam Present: RRR - *Routine Abdominal Exam Present: soft, normoactive bowel sounds. Absent: tenderness - *Routine Extremities Exam Absent: edema Assessment and Plan (1) Syncope Current visit: Yes Status: Acute Qualifiers: Syncope type: unspecified Qualified Code(s): R55 - Syncope and collapse Category: Medical Code(s): R55 - Syncope and collapse (2) Fall Current visit: Yes Status: Acute Category: Medical Code(s): W19.XXXA - Unspecified fall, initial encounter (3) Memory deficit Current visit: Yes Status: Acute Category: Medical Code(s): R41.3 - Other amnesia (4) HTN (hypertension) Current visit: Yes Status: Chronic Category: Medical Code(s): I10 - Essential (primary) hypertension (5) Fibromyalgia Current visit: Yes Status: Chronic Category: Medical Code(s): M79.7 - Fibromyalgia (6) Rhabdomyolysis Current visit: Yes Status: Acute Category: Medical Code(s): M62.82 - Rhabdomyolysis (7) Acute electrocardiogram changes Current visit: Yes Status: Acute Category: Medical Code(s): R94.31 - Abnormal electrocardiogram [ECG] [EKG] - Assessment and plan all Dx Assessment and Plan for all problems:: Care management is working on disposition. <Mukesh Kaufman - Last Filed: 01/22/18 08:58> Internal Medicine - PN: Subj *Date: 01/22/18 *Time: 08:57 Exam Vital signs and Labs for Last 24 Hours: Temp Pulse Resp BP Pulse Ox 98.5 F 83 22 140/56 95 01/22/18 04:00 01/22/18 04:00 01/22/18 04:00 01/22/18 04:00 01/22/18 04:00 I & O for Last 24 hours: Intake & Output 01/19/18 01/20/18 01/21/18 01/22/18 11:59 11:59 11:59 11:59 Intake Total 639 / 639 582 / 582 1626 / 1626 720 / 720 Output Total 600 / 600 Balance 639 / 639 582 / 582 1026 / 1026 720 / 720 Weight 220 lb 4 oz Microbiology Reports for the Last 24 Hours: Microbiology 01/19/18 20:20 Urine,Clean Catch Urine Culture - Final NO GROWTH AFTER 48 HOURS Assessment and Plan (1) Syncope Current visit: Yes Status: Acute Qualifiers: Syncope type: unspecified Qualified Code(s): R55 - Syncope and collapse Category: Medical Code(s): R55 - Syncope and collapse (2) Fall Current visit: Yes Status: Acute Category: Medical Code(s): W19.XXXA - Unspecified fall, initial encounter (3) Memory deficit Current visit: Yes Status: Acute Category: Medical Code(s): R41.3 - Other amnesia (4) HTN (hypertension) Current visit: Yes Status: Chronic Category: Medical Code(s): I10 - Essential (primary) hypertension (5) Fibromyalgia Current visit: Yes Status: Chronic Category: Medical Code(s): M79.7 - Fibromyalgia (6) Rhabdomyolysis Current visit: Yes Status: Acute Category: Medical Code(s): M62.82 - Rhabdomyolysis (7) Acute electrocardiogram changes Current visit: Yes Status: Acute Category: Medical Code(s): R94.31 - Abnormal electrocardiogram [ECG] [EKG] - Assessment and plan all Dx Assessment and Plan for all problems:: Saw patient, reminded her that I spent 30 minutes with her last evening discussing her discharge plan and that she walked 400 feet in the hallway with therapist yesterday. She nows remembers all of those events. She would like to be discharged today for short term rehab.
[2018-01-22 09:08] VITALS: BP 127/59
--- NOTE | 2018-01-24 22:07 | Discharge Summary ---
General - General Admission date:: 01/18/18 Discharge date: 01/22/18 HPI HPI: Ms Biggs is a 62 year old female with a history of HTN and Fibromyalgia who presented to [facility] ER via EMS after falling at home last night at an unknown time. She tried to get up and was unable to do so. She cannot recall why she fell. She reports her friend came over to check on her and found her face down on the floor. Pt reports she is hurting all over and especially her head. She cannot remember having CP or SOB. She does not recall anything from the past few days. At the time of this exam she states her sides and knees are hurting. She deneis CP and SOB. With ER work up CT's are negative. She will admitted for further evaluation and treatment. Hospital Course Hospital Course: The patient was started on IVF's. Her CPK improved. A carotid U/S and echo were ordered and showed no significant abnormalities. Cardiac enzymes were normal. Cardiology was consulted and recommended a cath. They performed the cath and it was normal. She had a CTA of the chest and there was no PE. There was no abnormality found to cause her syncopal episode. She did develop a DINH and requested ASA. The patient saw PT and they felt she needed placement at a SNF for rehab. Dr. Kaufman had a long discussion with the patient and she did not want to go to a alf facility for rehab due to the Mother's day holiday. She lived alone and did not have anyone who could stay with her. She reported that her son was supposed to come to [facility] and she wanted to stay in the hospital until then. Dr. Kaufman spoke to care management and they had a different understanding of the patient's plan. They understood patient would have someone staying with her at night and checking on her frequently during the day and she would have home health physical therapy. She did improve during admission and was able to ambulate slowly with a walker. It was felt she really needed around the clock supervision. Care management arranged rehab for the patient, however she said she could not afford the deductible her insurance company was going to make her pay so she declined to have rehab at a SNF. She stated she wanted to be discharged or she was going to leave AMA. She was discharged and home health will be arranged. Objective Vital signs: Temp Pulse Resp BP Pulse Ox 98.8 F 80 20 127/59 94 L 01/22/18 08:00 01/22/18 08:00 01/22/18 08:00 01/22/18 08:00 01/22/18 08:00 Narrative: - Constitutional no acute distress Comments: lying on stretcher and appears comfortable - *Routine HEENT Exam Head: Present: normocephalic, atraumatic Eye: Present: EOMI, PERRL. Absent: conjunctival icterus, scleral injection ENT: Present: mucous membranes moist, oropharynx clear - *Routine Neck Exam Present: supple. Absent: carotid bruit, lymphadenopathy, thyromegaly - *Routine Respiratory Exam Present: CTA bilaterally - *Routine Cardiovascular Exam Present: RRR - *Routine Abdominal Exam Present: soft, normoactive bowel sounds, tenderness (SP). Absent: guarding - *Routine Extremities Exam Absent: edema, calf tenderness Comments: can barely lift bilaterl legs off the stretcher - *Routine Neurological Exam Present: alert, oriented X3, sensory deficit, motor deficit, plantar reflex, moving all extremities, normal speech (slow at times) memory loss DS: Diagnosis - Discharge Diagnosis (1) Syncope Status: Acute (2) Fall Status: Acute (3) Memory deficit Status: Acute (4) HTN (hypertension) Status: Chronic (5) Fibromyalgia Status: Chronic (6) Rhabdomyolysis Status: Acute (7) Acute electrocardiogram changes Status: Acute Discharge Plan - Patient Discharge Instructions Patient Instructions: DI for Syncope in Adults (Fainting), How to Prevent Falls - Follow up Plan Follow up with: Mukesh Kaufman MD [Primary Care Provider] - Disposition: Home, Self-Halfway Medications: Home Medications Medication Instructions Recorded Confirmed Type Amitriptyline HCl [Elavil 10mg 20 mg PO HSP PRN 01/19/18 01/19/18 History tablet] Furosemide [Furosemide 20mg Tab] 20 mg PO DAILY 01/19/18 01/19/18 History Ibuprofen [Ibuprofen 800mg Tab] 800 mg PO Q6HP PRN 01/19/18 01/19/18 History Pravastatin Sodium [Pravachol 40mg 40 mg PO DAILY 01/19/18 01/19/18 History Tablet] Tramadol HCl [Ultram 50mg 50 mg PO Q4-6H PRN 01/19/18 01/19/18 History tablet] buPROPion HCl [Bupropion Xl] 300 mg PO DAILY 01/19/18 01/19/18 History Prescriptions/Medication Reconciliation: Continue buPROPion HCl [Bupropion Xl] 300 mg PO DAILY Pravastatin Sodium [Pravachol 40mg Tablet] 40 mg PO DAILY Furosemide [Furosemide 20mg Tab] 20 mg PO DAILY Tramadol HCl [Ultram 50mg tablet] 50 mg PO Q4-6H PRN PRN Reason: PAIN Ibuprofen [Ibuprofen 800mg Tab] 800 mg PO Q6HP PRN PRN Reason: Moderate Pain Amitriptyline HCl [Elavil 10mg tablet] 20 mg PO HSP PRN PRN Reason: Sleep
== END 2018-01-22 14:05 | disposition home health service (06) ==
LOC: 2ND 13:55 → ER 13:55 → INTOOBSV 17:41 → OBSVTOIN 17:41 → 2ND 17:42
PROVIDERS: ADMIT Family Medicine; ATTEND Family Medicine

== ENCOUNTER → 2018-02-02 16:43 | Outpatient (REF) | payer MEDICARE, SELFPAY | LOC: LAB 16:43 | PROVIDERS: Visit Provider Urology | DX: R39.89 Other symptoms and signs involving the genitourinary system (principal) | CPT/HCPCS: 87086; 87088; 87186 ==

== ENCOUNTER 2018-03-12 14:49 | Observation (INO) ==
--- NOTE | 2018-03-12 15:01 | Emergency Department Note ---
ED Disposition Clinical Impression: Memory deficit, Acute electrocardiogram changes Altered mental status Qualifiers: Altered mental status type: transient alteration of awareness Qualified Code(s) : R40.4 - Transient alteration of awareness UTI (urinary tract infection) Qualifiers: Urinary tract infection type: acute cystitis Hematuria presence: without hematuria Qualified Code(s): N30.00 - Acute cystitis without hematuria Disposition: Admitted as Observation Condition on Discharge: Good Time of Disposition: 17:15 - Critical Care Critical Care Time: No Attestation: On , the high probability of a clinically significant, sudden or life threatening deterioration of the following system(s) required my full and direct attention, intervention and personal management. The time I documented below is in addition to time spent performing reported procedures but includes the following listed in this critical care notation. Medical Decision Making - Medical Records Medical records reviewed: Yes: I reviewed the patient's medical records. MR Comment: louann estrada after fall with admission 01/2018 - Pete Inquiry Pt receiving controlled substance: No Vital Signs: 03/12/18 14:50 03/12/18 15:20 03/12/18 15:55 Temperature 98.1 F Temperature Source Temporal Artery Scan Temporal Artery Scan Pulse Rate [Right Brachial] 88 89 88 Respiratory Rate 18 16 Blood Pressure [Right Arm] 142/80 156/85 153/85 Blood Pressure Mean [Right Arm] 100 108 107 Blood Pressure Source [Right Arm] Automatic Cuff Automatic Cuff Automatic Cuff Blood Pressure Position [Right Arm] Supine Supine Supine 02 Sat by Pulse Oximetry 98 99 98 Oxygen Delivery Method Room Air Room Air Room Air - Lab Data Lab results reviewed: Yes: I reviewed the patient's lab results. Lab Results 03/12/18 14:50: WBC 11.0 H, RBC 5.97 H, Hgb 15.7, Hct 48.3 H, MCV 80.9 L, MCH 26.3 L, MCHC 32.5, RDW 13.0, Plt Count 295, MPV 9.4, Neut % (Auto) 70.6, Lymph % (Auto) 20.5, [place] % (Auto) 6.8, Eos % (Auto) 1.4, Baso % (Auto) 0.8, Neut # ( Auto) 7.7, Lymph # (Auto) 2.2, [place] # (Auto) 0.8, Eos # (Auto) 0.2, Baso # (Auto ) 0.1 03/12/18 14:50: Sodium 137, Potassium 4.0, Chloride 102, Carbon Dioxide 21, Anion Gap 18.0 H, BUN 18, Creatinine 1.48 H, Estimated Creat Clear 68, Estimated GFR 36 L, Est GFR ( Amer) 44 L, Glucose 111 H, Calcium 9.5, Total Bilirubin 1.1 H, AST 28, ALT 20, Alkaline Phosphatase 104, Total Creatine Kinase 53, CK-MB (CK-2) < 0.5 D, CK-MB (CK-2) Rel Index 0.9, Troponin I < 0.02 , Total Protein 8.1, Albumin 3.4, Globulin 4.7 H, Albumin/Globulin Ratio 0.7 L, TSH 3.56, Free T4 1.14 03/12/18 15:25: Urine Color Yellow, Urine Appearance Cloudy, Urine pH 5.5, Ur Specific [place] 1.025, Urine Protein 1+, Urine Glucose (UA) Negative, Urine Ketones Trace, Urine Blood Trace-l, Urine Nitrate Negative, Urine Bilirubin Negative, Urine Urobilinogen 0.2, Ur Leukocyte Esterase 2+ A, Urine RBC Occasional, Urine WBC 20-50, Ur Squamous Epith Cells 3-5, Urine Bacteria 1+, Hyaline Casts Occasional Result diagrams: 03/12/18 14:50 03/12/18 14:50 Orders (Tests/Meds): ORDERS Category Date Time Status UDS [Drug Screen,Urine] Stat Lab 03/12/18 17:09 Ordered Urine Culture Stat Micro 03/12/18 15:25 Received - CT Data CT Scan: Head Time Received: 15:32 (post surgical changes neg acute) ED CT Reviewed: Yes: I have viewed the radiologist's interpretation - ECG Data Tracing #1 I reviewed this ECG and interpreted as documented below: NSR, ST depression laterally, seen on prior from January 18, 2018; new inferior ST depression not seen previously; no ectopy; nl axis and intervals. - Physician Consults Physician Consulted: Service call MD Dr. Trejo Time: 17:02 (Dr. Trejo will d/w case management) Reason -: Pt condition Additional Consult: Dr. Trejo Time: 17:15 (admit; check UDS ) Reason -: Admission Medical Decision Narrative: Case management called back; once UA returned, talk to service call MD about admission. Weakness HPI - General Chief complaint: Altered Mental Status Stated complaint: ams Time Seen by Provider: 03/12/18 14:58 Mode of Arrival: EMS Source of Information: EMS - History of Present Illness HPI Narrative: Per EMS, caregivernoted some confusion today. Patient has no complaints. Apparently lives alone, has son who has POA, who has contacted [facility]onna Elizondo in case management. If patient admitted, Madonna will assist with possible placement. Onset (ago): minute(s) Location: generalized Severity: mild Relieving factors: none Exacerbating factors: none Associated symptoms: denies other symptoms - Related Data Home Medications Medication Instructions Recorded Confirmed Amitriptyline HCl [Elavil 10mg 20 mg PO HSP PRN 01/19/18 01/19/18 tablet] Ibuprofen [Ibuprofen 800mg Tab] 800 mg PO Q6HP PRN 01/19/18 01/19/18 Pravastatin Sodium [Pravachol 40mg 40 mg PO DAILY 01/19/18 01/19/18 Tablet] prednisolone 5 mg tablet 5 mg PO BID 02/02/18 bupropion HCl XL 300 mg 24 hr 300 mg PO DAILY 02/16/18 tablet, extended release furosemide 20 mg tablet 20 mg PO DAILY tab 02/23/18 levothyroxine 50 mcg tablet 50 mcg PO DAILY tab 02/23/18 Allergies Allergy/AdvReac Type Severity Reaction Status Date / Time erythromycin base Allergy Unknown Verified 02/23/18 09:26 allergy reaction Penicillins Allergy Unknown Verified 02/23/18 09:26 allergy reaction [facility] History I have reviewed the patient's past medical history: Yes (rhabdo in early January 2018 with extensive w/u for syncope/admit) Medical History: Reports:: Cancer (Brain and Lung Cancer), Hypertension, Lung Disease Denies:: Asthma, Atherosclerotic Heart Disease, Congestive Heart Failure, Chronic Obstructive Pulmonary Disease (COPD), Coronary Artery Disease, Cerebrovascular Accident, Diabetes Mellitus Type 2, Gastroesophageal Reflux Disease(GERD), Gastrointestinal Bleed, Hyperlipidemia, Palpitations, Renal Insufficiency, Seizures Other Medical History: Reports: Anemia, Arthritis, Chemotherapy, Fibromyalgia, Radiation Therapy Comment: SOA, Abn periods, Uterus/ovaries-problems Other Surgeries: Yes: Appendectomy, Cancer Surgery, Cardiac Catheterization, Cholecystectomy, , Hysterectomy-Total Amputation: No Fractures: No - Social History Smoking Status: Former smoker Tobacco Type: e-cigarettes #Yrs smoked (if former smoker): 35 Alcohol Intake: never Alcohol Intake Frequency:: other Substance Use Type: denies use Occupational Status: retired Housing: house Household Members: none Family Hx:: Asthma, Hyperlipidemia, Diabetes, Heart Attack, Hypertension Comment: Arthritis, Emphysema, Glaucoma, Lung disease, Radiation tx ROS Obtained: Yes All systems reviewed & no additional complaints, Yes other ( per son POA: baseline memory issues, difficulty with ambulation hx brain CA) Physical Exam T 98.4 HR 85 - General General appearance: in no apparent distress, other (flat affect, answers in monotones) - Head Head exam: atraumatic, normocephalic, normal inspection - Eye Eye exam: Present: normal appearance, PERRL, EOMI - ENT ENT exam: Present: normal exam, normal oropharynx, mucous membranes moist, TM's normal bilaterally, normal external ear exam - Neck Neck exam: Present: normal inspection, full ROM, trachea midline. Absent: meningismus, lymphadenopathy - Chest Chest inspection: Present: normal inspection, symmetric chest wall rise. Absent : tenderness - Respiratory Respiratory exam: Present: normal lung sounds bilaterally. Absent: respiratory distress - Cardiovascular Cardiovascular exam: Present: regular rate, normal rhythm. Absent: JVD - Abdominal Exam Abdominal exam: Present: soft, normal bowel sounds. Absent: distention, tenderness, guarding - Extremities Exam Extremities exam: Present: normal inspection, full ROM, normal capillary refill. Absent: calf tenderness - Back Exam Back exam: Present: normal inspection. Absent: tenderness - Neurological Exam Neurological exam: Present: alert, oriented X3, CN II-XII intact, reflexes normal, other (; baseline has difficulty ambulating; baseline has memory issues due to prior resection of brain tumor ). Absent: motor sensory deficit - Psychiatric Psychiatric exam: Present: normal affect, normal mood - Skin Skin exam: Present: warm, dry, intact, normal color - Lymphatic Lymphatic Findings: no adenopathy
[2018-03-12 15:04] LABS: Basophils # 0.1 K/mm3 (0-0.2); Basophils % 0.8 % (0.1-2.0); Eosinophils # 0.2 K/mm3 (0.0-0.4); Eosinophils % 1.4 % (0.1-12.0); Hematocrit 48.3 % (37.0-47.0); Hemoglobin 15.7 g/dL (12.2-16.2); Lymphocytes # 2.2 K/mm3 (0.7-4.5); Lymphocytes % 20.5 K/mm3 (10-50); Mean Corpuscular HGB Conc 32.5 g/dL (31.8-35.4); Mean Corpuscular Hemoglobin 26.3 pg (27.0-31.2); Mean Corpuscular Volume 80.9 fl (81-99); Mean Platelet Volume 9.4 fl (7.4-10.4); Monocytes # 0.8 K/mm3 (0.1-1.0); Monocytes % 6.8 % (1.7-9.3); Neutrophils # 7.7 K/mm3 (1.8-7.8); Neutrophils % 70.6 % (37.0-80.0); Platelet Count 295 K/mm3 (142-424); Red Blood Count 5.97 M/mm3 (4.20-5.40)
[2018-03-12 15:25] LABS: Alanine Aminotransferase 20 U/L (12-78); Albumin Level 3.4 gm/dL (3.4-5.0); Albumin/Globulin Ratio 0.7 (1.1-1.8); Alkaline Phosphatase 104 U/L (46-116); Aspartate Amino Transferase 28 U/L (15-37); Bilirubin,Total 1.1 mg/dL (0.2-1.0); Blood Urea Nitrogen 18 mg/dL (7-18); Calcium 9.5 mg/dL (8.5-10.1); Carbon Dioxide 21 mmol/L (21.0-32.0); Chloride 102 mmol/L (98-107); Creatine Kinase 53 U/L (26-192); Free T4 (Free Thyroxine) 1.14 ng/dl (0.76-1.46); Globulin 4.7 gm/dl (1.3-3.2); Glucose 111 mg/dL (74-106); Sodium 137 mmol/L (136-145); Thyroid Stimulating Hormone 3.56 uIU/ml (0.358-3.740); Total Protein,Serum 8.1 gm/dL (6.4-8.2)
[2018-03-12 15:59] LABS: Microscopic, Urine URINE MICROSCOPIC (MICROSCOPIC)
[2018-03-12 16:00] LABS: Appearance,Urine CLOUDY (Clear); Blood, Urine TRACE-L (Negative); Color,Urine YELLOW (Yellow); Glucose,Urine (UA) Negative (Negative); Ketones,Urine TRACE (Negative); Leukocyte Esterase,Urine 2+ (Negative); PH,Urine 5.5 (5.0-8.5); Protein,Urine 1+ (Negative); Specific Gravity, Urine 1.025 (1.005-1.030); Urobilinogen,Urine 0.2 EU/dl (0.2)
[2018-03-12 16:12] LABS: Bilirubin,Urine Negative (Negative)
[2018-03-12 16:14] LABS: Bacteria,Urine 1+ /lpf; Hyaline Casts,Urine Occasional #/lpf (0); RBC,Urine Occasional #/hpf (0-3); WBC,Urine 20-50 #/hpf (0-3)
[2018-03-12 17:22] LABS: Amphetamine/Metha Screen,Urine Negative ng/mL (<1000); Barbiturates Screen,Urine Negative ng/mL (<200); Benzodiazepines Screen,Urine Negative ng/mL (<200); Cannabinoid Screen,Urine Negative ng/mL (<50); Cocaine Screen,Urine Negative ng/mL (<300); Methadone Screen,Urine Negative ng/mL (<300); Opiate Screen,Urine Negative ng/mL (<300); Phencyclidine Screen,Urine Negative ng/mL (<25)
[2018-03-13 06:54] LABS: Basophils # 0.1 K/mm3 (0-0.2); Eosinophils # 0.2 K/mm3 (0.0-0.4); Eosinophils % 2.6 % (0.1-12.0); Hematocrit 45.9 % (37.0-47.0); Hemoglobin 14.7 g/dL (12.2-16.2); Lymphocytes # 1.6 K/mm3 (0.7-4.5); Lymphocytes % 25.1 K/mm3 (10-50); Mean Corpuscular Hemoglobin 26.5 pg (27.0-31.2); Mean Corpuscular Volume 82.6 fl (81-99); Mean Platelet Volume 9.6 fl (7.4-10.4); Monocytes # 0.5 K/mm3 (0.1-1.0); Monocytes % 8.5 % (1.7-9.3); Neutrophils # 3.9 K/mm3 (1.8-7.8); Neutrophils % 62.8 % (37.0-80.0); Platelet Count 207 K/mm3 (142-424); Red Blood Count 5.55 M/mm3 (4.20-5.40); White Blood Count 6.3 K/mm3 (4.8-10.8)
[2018-03-13 07:01] LABS: Anion Gap 12.6 mEq/L (5-15); Calcium 9.2 mg/dL (8.5-10.1); Potassium 3.6 mmoL/L (3.5-5.1)
--- NOTE | 2018-03-13 08:03 | History & Physical Report ---
*Admission Date: 03/12/18 *Chief complaint: change in mental status *History of present illness: this wf was brought to er with change in mental status and was noted to have uti an dwas admitted for ivf and abx -er EMS, caregivernoted some confusion today. Patient has no complaints. Apparently lives alone, has son who has POA, who has contacted [facility]onna Elizondo in case management. If patient admitted, Madonna will assist with possible placement. pt with no def c/o and unable to give specific hx - pt has hx of cancer in past - no fever and no trauma and no rash [facility] History I have reviewed the patient's past medical history: Yes Medical History: Reports:: Hypertension, Lung Disease Denies:: Asthma, Atherosclerotic Heart Disease, Cancer, Congestive Heart Failure, Chronic Obstructive Pulmonary Disease (COPD), Coronary Artery Disease, Cerebrovascular Accident, Diabetes Mellitus Type 1, Diabetes Mellitus Type 2, Gastroesophageal Reflux Disease(GERD), Gastrointestinal Bleed, Hyperlipidemia, MRSA, Palpitations, Renal Insufficiency, Seizures Other Medical History: Reports: Anemia, Arthritis, Chemotherapy, Fibromyalgia, Radiation Therapy Other Surgeries: Yes: Appendectomy, Cancer Surgery, Cardiac Catheterization, Cholecystectomy, , Hysterectomy-Total Amputation: No Fractures: No - *Social History Educational Level: Completed High School Smoking Status: Current every day smoker Tobacco Type: e-cigarettes #Yrs smoked (if former smoker): 35 Alcohol Intake: never Alcohol Intake Frequency:: other Substance Use Type: denies use Occupational Status: retired Housing: house Household Members: none - Psychiatric History Expresses thoughts of harming self/others: None Suicide Plan Description: No Plan *Family Hx:: Asthma, Hyperlipidemia, Diabetes, Heart Attack, Hypertension Review of Systems - Review of Systems Review of systems:: pertinent systems reviewed and negative unless documented below - Constitutional Denies fever(s), Denies headache(s) - Eyes Denies change in vision - ENT Denies sore throat - *Cardiovascular Denies chest pain at rest - *Respiratory Denies cough - *Gastrointestinal Denies abdominal pain - *Genitourinary Denies blood in urine - *Musculoskeletal Denies joint pain, Denies joint swelling, Denies neck pain - Integumentary/Breasts Denies rash - *Neurologic Denies seizure-like activity - Psychiatric Reports confusion, Denies anxiety Meds Home Medications Medication Instructions Recorded Confirmed Type Amitriptyline HCl [Elavil 10mg 20 mg PO HSP PRN 01/19/18 03/12/18 History tablet] Ibuprofen [Ibuprofen 800mg Tab] 800 mg PO Q6HP PRN 01/19/18 03/12/18 History Pravastatin Sodium [Pravachol 40mg 40 mg PO DAILY 01/19/18 03/12/18 History Tablet] prednisolone 5 mg tablet 5 mg PO BID 02/02/18 03/12/18 History bupropion HCl XL 300 mg 24 hr 300 mg PO DAILY 02/16/18 03/12/18 History tablet, extended release furosemide 20 mg tablet 20 mg PO DAILY tab 02/23/18 03/12/18 History levothyroxine 50 mcg tablet 50 mcg PO DAILY tab 02/23/18 03/12/18 History Allergies Allergy/AdvReac Type Severity Reaction Status Date / Time erythromycin base Allergy Unknown Verified 02/23/18 09:26 allergy reaction Penicillins Allergy Unknown Verified 02/23/18 09:26 allergy reaction Exam Vital signs and Labs for Last 24 Hours: Temp Pulse Resp BP Pulse Ox 97.9 F 80 16 132/79 95 03/13/18 07:41 03/13/18 07:41 03/13/18 07:41 03/13/18 07:41 03/13/18 07:41 Laboratory Results - last 24 hr 03/12/18 13:40: Troponin I < 0.02 03/12/18 14:50: WBC 11.0 H, RBC 5.97 H, Hgb 15.7, Hct 48.3 H, MCV 80.9 L, MCH 26.3 L, MCHC 32.5, RDW 13.0, Plt Count 295, MPV 9.4, Neut % (Auto) 70.6, Lymph % (Auto) 20.5, [place] % (Auto) 6.8, Eos % (Auto) 1.4, Baso % (Auto) 0.8, Neut # ( Auto) 7.7, Lymph # (Auto) 2.2, [place] # (Auto) 0.8, Eos # (Auto) 0.2, Baso # (Auto ) 0.1 03/12/18 14:50: Sodium 137, Potassium 4.0, Chloride 102, Carbon Dioxide 21, Anion Gap 18.0 H, BUN 18, Creatinine 1.48 H, Estimated Creat Clear 68, Estimated GFR 36 L, Est GFR ( Amer) 44 L, Glucose 111 H, Calcium 9.5, Total Bilirubin 1.1 H, AST 28, ALT 20, Alkaline Phosphatase 104, Total Creatine Kinase 53, CK-MB (CK-2) < 0.5 D, CK-MB (CK-2) Rel Index 0.9, Troponin I < 0.02 , Total Protein 8.1, Albumin 3.4, Globulin 4.7 H, Albumin/Globulin Ratio 0.7 L, TSH 3.56, Free T4 1.14 03/12/18 15:25: Urine Color Yellow, Urine Appearance Cloudy, Urine pH 5.5, Ur Specific [place] 1.025, Urine Protein 1+, Urine Glucose (UA) Negative, Urine Ketones Trace, Urine Blood Trace-l, Urine Nitrate Negative, Urine Bilirubin Negative, Urine Urobilinogen 0.2, Ur Leukocyte Esterase 2+ A, Urine RBC Occasional, Urine WBC 20-50, Ur Squamous Epith Cells 3-5, Urine Bacteria 1+, Hyaline Casts Occasional 03/12/18 15:25: Urine Opiates Screen Negative, Urine Methadone Screen Negative, Ur Barbituates Screen Negative, Ur Phencyclidine Scrn Negative, Ur Amphetamines Screen Negative, U Benzodiazepines Scrn Negative, Urine Cocaine Screen Negative , U Marijuana (THC) Screen Negative 03/12/18 21:03: POC Glucose 108 03/12/18 21:19: Troponin I < 0.02 03/12/18 23:52: POC Glucose 118 H 03/13/18 06:25: POC Glucose 97 03/13/18 06:30: WBC 6.3 D, RBC 5.55 H, Hgb 14.7, Hct 45.9, MCV 82.6, MCH 26.5 L , MCHC 32.0, RDW 13.0, Plt Count 207 D, MPV 9.6, Neut % (Auto) 62.8, Lymph % ( Auto) 25.1, [place] % (Auto) 8.5, Eos % (Auto) 2.6, Baso % (Auto) 1.0, Neut # (Auto ) 3.9, Lymph # (Auto) 1.6, [place] # (Auto) 0.5, Eos # (Auto) 0.2, Baso # (Auto) 0.1 03/13/18 06:30: Sodium 140, Potassium 3.6, Chloride 105, Carbon Dioxide 26 D, Anion Gap 12.6, BUN 15, Creatinine 1.41 H, Estimated Creat Clear 60, Estimated GFR 38 L, Est GFR ( Amer) 46 L, Glucose 110 H, Calcium 9.2 I & O for Last 24 hours: Intake & Output 03/10/18 03/11/18 03/12/18 03/13/18 11:59 11:59 11:59 11:59 Intake Total 360 / 360 Output Total 700 / 700 Balance -340 / -340 Weight 198 lb 1 oz - Constitutional no acute distress - *Routine HEENT Exam Head: Present: normocephalic Eye: Present: EOMI, PERRL ENT: Present: mucous membranes dry - *Routine Neck Exam Present: supple - *Routine Respiratory Exam Present: CTA bilaterally - *Routine Cardiovascular Exam Present: RRR, murmur - *Routine Abdominal Exam Present: soft - *Routine Extremities Exam Absent: calf tenderness - *Routine Skin Exam Present: intact - *Routine Neurological Exam Present: alert, CN II-XII intact - Routine Psychiatric Exam Present: unable to assess H&P: Result - Labs Labs: Short CBC 03/12/18 03/13/18 Range/Units 14:50 06:30 WBC 11.0 H 6.3 D (4.8-10.8) K/mm3 Hgb 15.7 14.7 (12.2-16.2) g/dL Hct 48.3 H 45.9 (37.0-47.0) % Plt Count 295 207 D (142-424) K/mm3 BMP 03/12/18 03/13/18 14:50 06:30 Sodium 137 140 Potassium 4.0 3.6 Chloride 102 105 Carbon Dioxide 21 26 D BUN 18 15 Creatinine 1.48 H 1.41 H Glucose 111 H 110 H Calcium 9.5 9.2 Cardiac Enzymes 03/12/18 03/12/18 03/12/18 Range/Units 13:40 14:50 21:19 Total Creatine Kinase 53 (26-192) U/L CK-MB (CK-2) < 0.5 D (0.0-3.6) ng/ml Troponin I < 0.02 < 0.02 < 0.02 (0.00-0.06) ng/ml Liver Function 03/12/18 Range/Units 14:50 Total Bilirubin 1.1 H (0.2-1.0) mg/dL AST 28 (15-37) U/L ALT 20 (12-78) U/L Alkaline Phosphatase 104 (46-116) U/L Albumin 3.4 (3.4-5.0) gm/dL Urine 03/12/18 Range/Units 15:25 Urine Color Yellow (Yellow) Urine Appearance Cloudy (Clear) Urine pH 5.5 (5.0-8.5) Ur Specific [place] 1.025 (1.005-1.030) Urine Protein 1+ (Negative) Urine Glucose (UA) Negative (Negative) Assessment and Plan (1) Altered mental status Current visit: Yes Status: Acute Qualifiers: Altered mental status type: transient alteration of awareness Qualified Code(s): R40.4 - Transient alteration of awareness Category: Medical Code(s): R41.82 - Altered mental status, unspecified (2) UTI (urinary tract infection) Current visit: Yes Status: Acute Qualifiers: Urinary tract infection type: acute cystitis Hematuria presence: without hematuria Qualified Code(s): N30.00 - Acute cystitis without hematuria Category: Medical Code(s): N39.0 - Urinary tract infection, site not specified
--- NOTE | 2018-03-13 09:00 | Pharmacy Consult Notes ---
[facility] Pharmacy VTE Monitoring - Patient Demographics Admission date: 03/12/18 Report Date: 03/13/18 Time: 09:00 Allergies/Adverse Reactions: Patient Allergies erythromycin base Allergy (Verified 02/23/18 09:26) Unknown allergy reaction Penicillins Allergy (Verified 02/23/18 09:26) Unknown allergy reaction Height: 1.73 m Weight: 89.84 kg Patient Problems: Current Active Problems Memory deficit (Acute) Acute electrocardiogram changes (Acute) Altered mental status (Acute) UTI (urinary tract infection) (Acute) - VTE Risk Labs: VTE Related Lab Results Hgb 14.7 g/dL (12.2-16.2) 03/13/18 06:30 Hct 45.9 % (37.0-47.0) 03/13/18 06:30 Plt Count 207 K/mm3 (142-424) D 03/13/18 06:30 BUN 15 mg/dL (7-18) 03/13/18 06:30 Creatinine 1.41 mg/dL (0.55-1.02) H 03/13/18 06:30 Estimated Creat Clear 60 mL/min (0-300) 03/13/18 06:30 Was VTE Risk Assessment Performed: Yes VTE Score: 3 VTE Risk Level: Low Risk - Prophylaxis VTE Prophylaxis Ordered?: Yes Types of VTE Prophylaxis: TEDS Knee High Location of Applied Device: Bilateral Lower Extremeties
--- NOTE | 2018-03-14 08:18 | Progress Note ---
Internal Medicine - PN: Subj *Date: 03/14/18 *Time: 08:16 Interval history: doing ok with no new c/o - seems more alert today Exam Vital signs and Labs for Last 24 Hours: Temp Pulse Resp BP Pulse Ox 98.9 F 87 18 124/72 93 L 03/14/18 08:00 03/14/18 08:00 03/14/18 08:00 03/14/18 08:00 03/14/18 08:00 Laboratory Results - last 24 hr 03/13/18 11:28: POC Glucose 87 03/13/18 16:34: POC Glucose 67 L 03/13/18 18:19: POC Glucose 115 H 03/14/18 00:01: POC Glucose 82 03/14/18 06:13: POC Glucose 82 I & O for Last 24 hours: Intake & Output 03/11/18 03/12/18 03/13/18 03/14/18 11:59 11:59 11:59 11:59 Intake Total 360 / 360 1350 / 1350 Output Total 700 / 700 250 / 250 Balance -340 / -340 1100 / 1100 Weight 198 lb 1 oz Microbiology Reports for the Last 24 Hours: Microbiology 03/12/18 15:25 Urine,Catheterized Urine Culture - Preliminary NO GROWTH AFTER 24 HOURS - Constitutional no acute distress - *Routine HEENT Exam Head: Present: normocephalic Eye: Present: EOMI, PERRL ENT: Present: mucous membranes dry - *Routine Neck Exam Present: supple - *Routine Respiratory Exam Absent: respiratory distress - *Routine Cardiovascular Exam Present: RRR, murmur - *Routine Abdominal Exam Present: soft - *Routine Extremities Exam Absent: calf tenderness - *Routine Skin Exam Present: intact - *Routine Neurological Exam Present: CN II-XII intact - Routine Psychiatric Exam Present: unable to assess Assessment and Plan (1) Altered mental status Current visit: Yes Status: Acute Qualifiers: Altered mental status type: transient alteration of awareness Qualified Code(s): R40.4 - Transient alteration of awareness Category: Medical Code(s): R41.82 - Altered mental status, unspecified (2) UTI (urinary tract infection) Current visit: Yes Status: Acute Qualifiers: Urinary tract infection type: acute cystitis Hematuria presence: without hematuria Qualified Code(s): N30.00 - Acute cystitis without hematuria Category: Medical Code(s): N39.0 - Urinary tract infection, site not specified
[2018-03-15 06:22] LABS: Basophils % 0.6 % (0.1-2.0); Eosinophils # 0.2 K/mm3 (0.0-0.4); Eosinophils % 3.5 % (0.1-12.0); Hematocrit 43.3 % (37.0-47.0); Hemoglobin 13.8 g/dL (12.2-16.2); Lymphocytes # 1.9 K/mm3 (0.7-4.5); Lymphocytes % 33.4 K/mm3 (10-50); Mean Corpuscular HGB Conc 31.9 g/dL (31.8-35.4); Mean Corpuscular Hemoglobin 26.5 pg (27.0-31.2); Mean Corpuscular Volume 83.2 fl (81-99); Monocytes # 0.5 K/mm3 (0.1-1.0); Monocytes % 8.5 % (1.7-9.3); Neutrophils # 3.1 K/mm3 (1.8-7.8); Platelet Count 209 K/mm3 (142-424); Red Blood Count 5.21 M/mm3 (4.20-5.40); White Blood Count 5.7 K/mm3 (4.8-10.8)
[2018-03-15 06:30] LABS: Anion Gap 10.7 mEq/L (5-15); Calcium 8.7 mg/dL (8.5-10.1); Potassium 3.7 mmoL/L (3.5-5.1)
[2018-03-15 07:48] VITALS: BP 112/65
--- NOTE | 2018-03-15 12:38 | Discharge Summary ---
General - General Admission date:: 03/12/18 Discharge date: 03/15/18 HPI HPI: this wf was brought to er with change in mental status and was noted to have uti an dwas admitted for ivf and abx -er EMS, caregivernoted some confusion today. Patient has no complaints. Apparently lives alone, has son who has POA, who has contacted [facility] Elizondo in case management. If patient admitted, Madonna will assist with possible placement. pt with no def c/o and unable to give specific hx - pt has hx of cancer in past - no fever and no trauma and no rash Hospital Course Hospital Course: ct head:IMPRESSION: 1. No acute intracranial finding with no change from 01/18/2018. 2. Atrophy with chronic ischemic change. 3. Postsurgical changes in the left suboccipital region with encephalomalacia change of the left cerebellar hemisphere. 4. There is no evidence of intracranial hemorrhage, focal mass, or acute territorial infarction. A negative CT does not exclude an acute CVA. A follow-up head CT or MRI is recommended if neurological symptoms persist drug screen neg ct chest IMPRESSION: no acute findings urine: no growth will dc today and follow up with pcp Objective Vital signs: Temp Pulse Resp BP Pulse Ox 97.9 F 76 16 112/65 100 03/15/18 07:47 03/15/18 07:47 03/15/18 07:47 03/15/18 07:47 03/15/18 07:47 no acute distress - *Routine Neck Exam Present: supple, full ROM - *Routine Respiratory Exam Present: CTA bilaterally - *Routine Cardiovascular Exam Present: RRR - *Routine Abdominal Exam Present: soft, normoactive bowel sounds - *Routine Extremities Exam Present: full ROM - *Routine Skin Exam Present: intact - *Routine Neurological Exam Present: alert, oriented X3 - Routine Psychiatric Exam Present: normal affect, normal thought process Results Labs on day of discharge: Labs from last 24 hours 03/15/18 03/15/18 03/15/18 06:05 06:05 06:01 WBC 5.7 RBC 5.21 Hgb 13.8 Hct 43.3 MCV 83.2 MCH 26.5 L MCHC 31.9 RDW 13.0 Plt Count 209 MPV 10.0 Neut % (Auto) 54.0 Lymph % (Auto) 33.4 [place] % (Auto) 8.5 Eos % (Auto) 3.5 Baso % (Auto) 0.6 Neut # (Auto) 3.1 Lymph # (Auto) 1.9 [place] # (Auto) 0.5 Eos # (Auto) 0.2 Baso # (Auto) 0.0 Sodium 141 Potassium 3.7 Chloride 108 H Carbon Dioxide 26 Anion Gap 10.7 BUN 13 Creatinine 1.27 H Estimated Creat Clear 67 Estimated GFR 43 L Est GFR ( Amer) 52 L Glucose 100 POC Glucose 86 Calcium 8.7 03/14/18 03/14/18 03/14/18 23:29 16:14 12:37 WBC RBC Hgb Hct MCV MCH MCHC RDW Plt Count MPV Neut % (Auto) Lymph % (Auto) [place] % (Auto) Eos % (Auto) Baso % (Auto) Neut # (Auto) Lymph # (Auto) [place] # (Auto) Eos # (Auto) Baso # (Auto) Sodium Potassium Chloride Carbon Dioxide Anion Gap BUN Creatinine Estimated Creat Clear Estimated GFR Est GFR ( Amer) Glucose POC Glucose 100 80 77 Calcium - Additional Comments discussed with cristine walters orderrs per romeo DS: Diagnosis - Discharge Diagnosis (1) Altered mental status Status: Acute (2) UTI (urinary tract infection) Status: Acute Discharge Plan - Patient Discharge Instructions ACTIVITY: Continue current activity DIET: continue same diet - Follow up Plan Disposition: Home, Self-Retirement Medications: Home Medications Medication Instructions Recorded Confirmed Type Amitriptyline HCl [Elavil 10mg 20 mg PO HSP PRN 01/19/18 03/12/18 History tablet] Ibuprofen [Ibuprofen 800mg Tab] 800 mg PO Q8HP PRN 01/19/18 03/13/18 History Pravastatin Sodium [Pravachol 40mg 40 mg PO HS 01/19/18 03/13/18 History Tablet] prednisolone 5 mg tablet 5 mg PO BID 02/02/18 03/12/18 History bupropion HCl XL 300 mg 24 hr 300 mg PO DAILY 02/16/18 03/12/18 History tablet, extended release furosemide 20 mg tablet 20 mg PO DAILY tab 02/23/18 03/12/18 History levothyroxine 50 mcg tablet 50 mcg PO DAILY tab 02/23/18 03/12/18 History Prescriptions/Medication Reconciliation: Continue levothyroxine 50 mcg tablet 50 mcg PO DAILY tab prednisolone 5 mg tablet 5 mg PO BID bupropion HCl XL 300 mg 24 hr tablet, extended release 300 mg PO DAILY furosemide 20 mg tablet 20 mg PO DAILY tab Pravastatin Sodium [Pravachol 40mg Tablet] 40 mg PO HS Ibuprofen [Ibuprofen 800mg Tab] 800 mg PO Q8HP PRN PRN Reason: Moderate Pain Amitriptyline HCl [Elavil 10mg tablet] 20 mg PO HSP PRN PRN Reason: Sleep
== END 2018-03-15 14:39 | disposition home or self-care (01) ==
LOC: 2ND 14:49 → ER 14:49 → 2ND 18:18
PROVIDERS: ADMIT Emergency Medicine; ATTEND Emergency Medicine

== ENCOUNTER → 2018-03-23 14:07 | Outpatient (REF) | payer MEDICARE, SELFPAY ==
[2018-03-23 14:10] LABS: Microscopic, Urine URINE MICROSCOPIC (MICROSCOPIC)
[2018-03-23 14:12] LABS: Appearance,Urine CLOUDY (Clear); Blood, Urine Negative (Negative); Color,Urine YELLOW (Yellow); Glucose,Urine (UA) Negative (Negative); Ketones,Urine Negative (Negative); Leukocyte Esterase,Urine TRACE (Negative); Nitrate,Urine Negative (Negative); PH,Urine 5.5 (5.0-8.5); Protein,Urine TRACE (Negative); Specific Gravity, Urine >= 1.030 (1.005-1.030); Urobilinogen,Urine 0.2 EU/dl (0.2)
[2018-03-23 14:30] LABS: Bilirubin,Urine Negative (Negative)
[2018-03-23 14:40] LABS: Bacteria,Urine 4+ /lpf; Calcium Oxalate Crystals,Urine Trace /lpf; WBC,Urine 20-50 #/hpf (0-3)
== END ==
LOC: LAB 14:07
PROVIDERS: Visit Provider Emergency Medicine
DX: C34.90 Malignant neoplasm of unspecified part of unspecified bronchus or lung (principal); C79.31 Secondary malignant neoplasm of brain; E03.9 Hypothyroidism, unspecified; R82.90 Unspecified abnormal findings in urine
CPT/HCPCS: 81001; 87086

== ENCOUNTER → 2018-11-08 17:38 | Outpatient (CLI) | payer MEDICARE, SELFPAY ==
[2018-11-08 18:07] LABS: Basophils # 0.1 K/mm3 (0-0.2); Eosinophils # 0.2 K/mm3 (0.0-0.4); Eosinophils % 1.7 % (0.1-12.0); Hematocrit 44.6 % (37.0-47.0); Hemoglobin 14.9 g/dL (12.2-16.2); Lymphocytes % 33.2 % (10-50); Mean Corpuscular HGB Conc 33.5 g/dL (31.8-35.4); Mean Corpuscular Hemoglobin 28.1 pg (27.0-31.2); Mean Corpuscular Volume 83.8 fl (81-99); Mean Platelet Volume 10.2 fl (7.4-10.4); Monocytes # 0.9 K/mm3 (0.1-1.0); Monocytes % 7.1 % (1.7-9.3); Platelet Count 411 K/mm3 (142-424); Red Blood Count 5.32 M/mm3 (4.20-5.40); Red Cell Distribution Width 13.8 % (11.5-17.5); White Blood Count 12.2 K/mm3 (4.8-10.8)
[2018-11-08 18:29] LABS: Alanine Aminotransferase 19 U/L (12-78); Albumin Level 3.5 gm/dL (3.4-5.0); Albumin/Globulin Ratio 0.9 (1.1-1.8); Alkaline Phosphatase 110 U/L (46-116); Anion Gap 16.9 mEq/L (5-15); Aspartate Amino Transferase 18 U/L (15-37); Bilirubin,Total 0.6 mg/dL (0.2-1.0); Blood Urea Nitrogen 18 mg/dL (7-18); Calcium 9.6 mg/dL (8.5-10.1); Carbon Dioxide 23 mmol/L (21.0-32.0); Chloride 105 mmol/L (98-107); Chol/HDL Ratio 4.1 (1-3.5); Cholesterol 186 mg/dL (140-200); Creatinine,Serum 1.53 mg/dL (0.55-1.02); Estimated Glomerular Filt Rate 35 ml/min (>60); GFR (African American) 42 ML/MIN (>60); Globulin 3.7 gm/dl (1.3-3.2); Glucose 101 mg/dL (74-106); HDL Cholesterol 45 mg/dL (29-89); LDL Cholesterol 101 mg/dL (0-130); Potassium 3.9 mmoL/L (3.5-5.1); Sodium 141 mmol/L (136-145); T4 (Thyroxine) 8.8 ug/dl (4.7-13.3); Thyroid Stimulating Hormone 3.36 uIU/ml (0.358-3.740); Total Protein,Serum 7.2 gm/dL (6.4-8.2); Triglycerides 199 mg/dL (30-200); VLDL Cholesterol 40 mg/dL (0-40)
[2018-11-10 08:10] LABS: Vitamin D 25 Hydroxy 33.7 ng/mL (30.0-100.0)
== END ==
PROVIDERS: Visit Provider Physician Assistant
DX: E03.9 Hypothyroidism, unspecified (principal); I10 Essential (primary) hypertension; C34.90 Malignant neoplasm of unspecified part of unspecified bronchus or lung; C79.31 Secondary malignant neoplasm of brain
CPT/HCPCS: 80053; 80061; 82652; 84436; 84443; 85025

== ENCOUNTER → 2019-02-17 08:19 | Outpatient (CLI) | payer MEDICARE, SELFPAY ==
[2019-02-17 08:47] LABS: Blood Urea Nitrogen 21 mg/dL (7-18); Creatinine,Serum 1.72 mg/dL (0.55-1.02); Estimated Glomerular Filt Rate 30 ml/min (>60); GFR (African American) 36 ML/MIN (>60)
--- NOTE | 2019-02-17 09:00 | CT_ITS ---
CT chest wo con HISTORY: Follow-up lung cancer ITS.REASON: LUNG CANCER ORDERING PHYSICIAN: Liliana Cordero MD PATIENT AGE: 63 years COMPARISON: 01/20/2018 Technique: Axial images obtained. Sagittal, and coronal reformatted images are also generated and reviewed. All CT scans at the facility use one or more dose reduction, viz: automated exposure control, ma/kV adjustment per patient size (including targeted exams where dose is matched to indication, i.e. head), or iterative reconstruction technique. FINDINGS: No mediastinal or hilar adenopathy. Calcified nodes are present in the mediastinum and right mini. There are coronary artery calcifications. Normal heart size. COPD with paraseptal emphysematous changes. There are scattered areas of scarring. Calcified granulomas are present. No suspicious pulmonary nodules are identified. No central obstructing lesions effusions or infiltrates.. No acute bony findings. IMPRESSION: 1. No change with no acute finding. 2. No convincing evidence of recurrent or metastatic disease. 3. Chronic changes with COPD and scattered areas of scarring which are not significantly changed
--- NOTE | 2019-02-17 09:00 | CT_ITS ---
CT abdomen pelvis wo con CLINICAL INDICATION: ITS.REASON: LUNG CA ORDERING PHYSICIAN: Liliana Cordero MD PATIENT AGE: 63 years COMPARISON: None TECHNIQUE: Axial images obtained with sagittal and coronal reformats. All CT scans at the facility use one or more dose reduction, viz: automated exposure control, ma/kV adjustment per patient size (including targeted exams where dose is matched to indication, i.e. head), or iterative reconstruction technique. PROCEDURE: Oral Contrast: Redicat IV Contrast: None . FINDINGS: Lung base images show coronary artery calcification. Fatty infiltration of the liver. A gallstone is present which measures 2 cm. Spleen, adrenal glands, and pancreas have an unremarkable appearance. Nonobstructing 2 mm stone is present in the lower polar region of the right kidney in the lower pole the left kidney. There are bilateral renal cysts. No intestinal obstruction or free air. The small umbilical hernia which contains fat. No evidence of appendicitis or diverticulitis. There is been a prior hysterectomy. No pelvic mass abnormal fluid collection or focal inflammatory change. No acute bony findings. There is 4 mm anterolisthesis of L4 on L5. IMPRESSION: 1. No acute finding. No convincing evidence of metastatic disease. 2. Fatty liver with cholelithiasis 3. Coronary artery calcification
== END ==
PROVIDERS: Visit Provider Internal Medicine Medical Oncology
DX: C34.90 Malignant neoplasm of unspecified part of unspecified bronchus or lung (principal); Z03.89 Encounter for observation for other suspected diseases and conditions ruled out
CPT/HCPCS: 36415; 71250; 74176; 82565; 84520

== ENCOUNTER → 2019-02-21 08:52 | Outpatient (CLI) | payer MEDICARE, SELFPAY ==
--- NOTE | 2019-02-21 08:55 | MM_ITS ---
MM Dig screening mamm BI w/CAD CAD Screening COMPARISON: Digital mammograms with CAD 05/03/2011 INDICATION: There is no personal or family history of breast cancer TECHNIQUE: Standard CC and MLO images were obtained. R2 CAD reviewed. FINDINGS: Moderate diffuse fibroglandular densities are seen throughout both breasts. There are mole markers on each breast. There are couple of benign-appearing microcalcifications left breast. There is no suspicious lesion and there are no suspicious microcalcifications. IMPRESSION: Moderate breast density with no suspicious lesion seen BI-RADS Category: 2 Benign Finding(s) RECOMMENDED FOLLOW-UP: 1YR - 1 YEAR FOLLOW-UP (A letter has been sent to the patient regarding results of the study.)
== END ==
PROVIDERS: PCP Emergency Medicine; Visit Provider Emergency Medicine
DX: Z12.31 Encounter for screening mammogram for malignant neoplasm of breast (principal)
CPT/HCPCS: 77067

== ENCOUNTER → 2019-06-21 08:19 | Outpatient (POV) | payer MEDICARE, SELFPAY ==
[2019-06-21 10:16] LABS: Basophils # 0.1 K/mm3 (0-0.2); Basophils % 0.9 % (0.1-2.0); Eosinophils # 0.2 K/mm3 (0.0-0.4); Hematocrit 46.3 % (37.0-47.0); Hemoglobin 14.1 g/dL (12.2-16.2); Lymphocytes # 2.7 K/mm3 (0.7-4.5); Lymphocytes % 31.3 % (10-50); Mean Corpuscular HGB Conc 30.5 g/dL (31.8-35.4); Mean Corpuscular Volume 88.5 fl (81-99); Mean Platelet Volume 9.2 fl (7.4-10.4); Monocytes # 0.7 K/mm3 (0.1-1.0); Monocytes % 8.2 % (1.7-9.3); Neutrophils # 5.1 K/mm3 (1.8-7.8); Neutrophils % 57.7 % (37.0-80.0); Platelet Count 296 K/mm3 (142-424); Red Blood Count 5.23 M/mm3 (4.20-5.40); Red Cell Distribution Width 14.7 % (11.5-17.5); White Blood Count 8.8 K/mm3 (4.8-10.8)
[2019-06-21 11:44] LABS: Alanine Aminotransferase 12 U/L (12-78); Albumin Level 3.3 gm/dL (3.4-5.0); Alkaline Phosphatase 112 U/L (46-116); Anion Gap 15.7 mEq/L (5-15); Aspartate Amino Transferase 16 U/L (15-37); Bilirubin,Total 0.5 mg/dL (0.2-1.0); Blood Urea Nitrogen 12 mg/dL (7-18); Calcium 9.2 mg/dL (8.5-10.1); Carbon Dioxide 27 mmol/L (21.0-32.0); Chloride 106 mmol/L (98-107); Cholesterol 130 mg/dL (140-200); Creatinine,Serum 1.44 mg/dL (0.55-1.02); Estimated Glomerular Filt Rate 37 ml/min (>60); GFR (African American) 45 ML/MIN (>60); Globulin 3.4 gm/dl (1.3-3.2); Glucose 87 mg/dL (74-106); HDL Cholesterol 44 mg/dL (29-89); LDL Cholesterol 53 mg/dL (0-130); Potassium 4.7 mmoL/L (3.5-5.1); Sodium 144 mmol/L (136-145); Total Protein,Serum 6.7 gm/dL (6.4-8.2); Triglycerides 166 mg/dL (30-200); VLDL Cholesterol 33 mg/dL (0-40)
[2019-06-24 06:55] LABS: QuantiFERON-TB Gold Plus Positive (Negative)
== END ==
PROVIDERS: Visit Provider Dermatology
DX: Z79.899 Other long term (current) drug therapy (principal); L40.0 Psoriasis vulgaris
CPT/HCPCS: 36415; 80053; 80061; 85025; 86480

== ENCOUNTER → 2020-04-10 09:44 | Outpatient (CLI) | payer MEDICARE, SELFPAY ==
[2020-04-10 10:05] LABS: Blood Urea Nitrogen 16 mg/dl (7-17); Estimated Glomerular Filt Rate 35 ml/min (>60); GFR (African American) 43 ML/MIN (>60)
--- NOTE | 2020-04-10 10:21 | CT_ITS ---
PROCEDURE: CT ABDOMEN PELVIS WO CON CLINICAL INDICATION: LUNG CANCER Follow-up lung cancer, evaluate for metastatic disease COMPARISON: [facility] CT angio chest from 01/20/2018 TECHNIQUE: Axial images obtained with sagittal and coronal reformats. All CT scans at the facility use one or more dose reduction, viz: automated exposure control, ma/kV adjustment per patient size (including targeted exams where dose is matched to indication, i.e. head), or iterative reconstruction technique. FINDINGS: The liver, spleen, adrenal glands, the the pancreas, has an unremarkable appearance. There are bilateral renal cyst measuring up to 3.7 cm on the left. Gallbladder is slightly distended and there is a gallstone present. The there is a small hiatal hernia. There is minimal nodularity along the posterior aspect of the cardia of the stomach which could be due to nondistention. There is a mild amount of retained colonic feces. Small umbilical hernia noted containing fat. No evidence of appendicitis or diverticulitis. There are post hysterectomy changes. No acute bony anomalies. IMPRESSION: 1. No convincing evidence of metastatic disease. 2. Cholelithiasis with mildly distended gallbladder and other nonacute findings as described above Dictated by: Alex Pennington MD 04/12/2020 08:32 Electronically signed by Alex Pennington MD in [place] 04/12/2020 08:32
--- NOTE | 2020-04-10 10:21 | CT_ITS ---
PROCEDURE: CT CHEST WO CON CLINICAL INDICATION: LUNG CANCER Follow-up lung cancer COMPARISON: [facility] CT angio chest from 01/20/2018 TECHNIQUE: Axial images obtained with sagittal and coronal reformats. All CT scans at the facility use one or more dose reduction, viz: automated exposure control, ma/kV adjustment per patient size (including targeted exams where dose is matched to indication, i.e. head), or iterative reconstruction technique. FINDINGS: Study is performed without IV contrast. The patient refused IV contrast. The calcified nodes are present in the mediastinum and mini. There are coronary artery calcifications. No mediastinal or hilar mass or adenopathy. Scarring is present in the right apex. There are changes of COPD. There is some faint reticular opacities in the right upper lobe with a slight tree-in-bud pattern and could be due to small area of infiltrate or fibrotic change. No suspicious nodules are evident. The there is evidence of old granulomatous disease. No effusions. No acute bony anomalies. There is mild lumbar scoliosis convex right. IMPRESSION: 1. COPD with scarring in the lung apices not significantly changed. 2. There are 2 small areas of tree in bud opacity in the right upper lobe which may be inflammatory or infectious in nature. Stability may be confirmed with follow-up. 3. No suspicious pulmonary nodules apparent Dictated by: Alex Pennington MD 04/12/2020 08:26 Electronically signed by Alex Pennington MD in [place] 04/12/2020 08:26
== END ==
PROVIDERS: PCP Urology; Visit Provider Internal Medicine Medical Oncology
DX: C34.90 Malignant neoplasm of unspecified part of unspecified bronchus or lung (principal)
CPT/HCPCS: 36415; 71250; 74176; 82565; 84520

== ENCOUNTER 2020-06-20 11:39 | Inpatient (IN) | payer MEDICARE, SELFPAY ==
[2020-06-20] VITALS (9 sets, daily range): BP systolic 108–140; BP diastolic 49–86; PULSE 64–94; RESP 16–18; TEMP 37.9–38.8; O2SAT 95–99; BMI 30.7; BMI 29.0
--- NOTE | 2020-06-20 12:00 | HMH.EDGENADL ---
ED Disposition Clinical Impression: Sepsis Urinary tract infection Qualifiers: Urinary tract infection type: acute pyelonephritis Qualified Code(s): N10 - Acute pyelonephritis Altered mental status Qualifiers: Altered mental status type: somnolence Qualified Code(s): R40.0 - Somnolence Disposition: Admitted as Observation Condition on Discharge: Fair Referrals: Ab Trejo MD [Primary Care Provider] - - Critical Care Critical Care Time: No Attestation: On 06/20/20, the high probability of a clinically significant, sudden or life threatening deterioration of the following system(s) required my full and direct attention, intervention and personal management. The time I documented below is in addition to time spent performing reported procedures but includes the following listed in this critical care notation. Medical Decision Making - Medical Records Medical records reviewed: Yes: I reviewed the patient's medical records. MR Frankel: Admitted in 2018 for UTI and altered mental status. Allergy to penicillin, but has had Rocephin previously. - Pete Inquiry Pt receiving controlled substance: No Vital Signs: 06/20/20 11:40 06/20/20 13:04 06/20/20 13:37 Temperature 101.3 F H Temperature Source Rectal Pulse Rate [Left Radial] 91 H 94 H 83 Respiratory Rate 18 Blood Pressure [Right Arm] 122/60 108/61 L 120/49 L Blood Pressure Mean [Right Arm] 80 76 72 Blood Pressure Source [Right Arm] Automatic Cuff Automatic Cuff Automatic Cuff Blood Pressure Position [Right Arm] Sitting Sitting Sitting 02 Sat by Pulse Oximetry 95 97 98 Oxygen Delivery Method Room Air Room Air Room Air - Lab Data Lab results reviewed: Yes: I reviewed the patient's lab results. Lab Results 06/20/20 11:50: WBC 12.5 H, RBC 5.08, Hgb 14.2, Hct 43.1, MCV 84.7, MCH 27.9, MCHC 32.9, RDW 13.4, Plt Count 284, MPV 9.2, Neut % (Auto) 73.9, Lymph % (Auto) 18.8, [place] % (Auto) 5.2, Eos % (Auto) 1.3, Baso % (Auto) 0.6, Neut # (Auto) 9.2 H, Lymph # (Auto) 2.4, [place] # (Auto) 0.7, Eos # (Auto) 0.2, Baso # (Auto) 0.1 06/20/20 11:50: Sodium 139, Potassium 4.8, Chloride 104, Carbon Dioxide 27, Anion Gap 12.8, BUN 14, Creatinine 1.20 H, Estimated Creat Clear 64, Estimated GFR 45 L, Est GFR ( Amer) 55 L, Glucose 105 H, Calcium 9.8, Total Bilirubin 0.7, AST 28, ALT 12, Alkaline Phosphatase 106, Total Protein 7.6, Albumin 4.0, Globulin 3.6 H, Albumin/Globulin Ratio 1.1, TSH 2.02 06/20/20 11:50: SARS-CoV-2 IgG Ab (Rapid) Negative, SARS-CoV-2 IgM Ab (Rapid) Negative 06/20/20 12:14: Urine Color Yellow, Urine Appearance Clear, Urine pH 8.0, Ur Specific [place] 1.020, Urine Protein Negative, Urine Glucose (UA) Negative, Urine Ketones Negative, Urine Blood Negative, Urine Nitrate Positive, Urine Bilirubin Negative, Urine Urobilinogen 0.2, Ur Leukocyte Esterase Negative, Urine RBC Occasional, Urine WBC 10-20, Ur Squamous Epith Cells 3-5, Urine Bacteria 4+ 06/20/20 12:18: Specimen Source R radial, O2 % Room air, ABG pH 7.45, ABG pCO2 33.5 L, ABG pO2 74.9 L, ABG HCO3 22.6, ABG Total CO2 23.6, ABG O2 Saturation 96, ABG Base Excess -1.5, Alex Test Acceptable Result diagrams: 06/20/20 11:50 06/20/20 11:50 Orders (Tests/Meds): ED MEDICATIONS Generic Name Dose Route Start Last Admin Trade Name Freq PRN Reason Stop Dose Admin Ceftriaxone Sodium 1 gm/ 50 mls @ 100 mls/hr 06/20/20 13:00 06/20/20 13:25 Sodium Chloride IV 07/04/20 12:59 100 mls/hr Q24H FRANCOIS Administration Protocol Discontinued Medications Generic Name Dose Route Start Last Admin Trade Name Freq PRN Reason Stop Dose Admin Acetaminophen 650 mg 06/20/20 12:15 06/20/20 12:20 Acetaminophen 650mg Suppository RC 06/20/20 12:16 650 mg ONCE ONE Administration Sodium Chloride 1,000 ml 06/20/20 12:14 06/20/20 12:43 Sodium Chloride 0.9% 1000ml Bag IV 06/20/20 12:15 1,000 ml BOLUS ONE Administration ORDERS Category Date Time Status Lactic Acid Stat Lab
--- NOTE | 2020-06-20 12:09 | CT_ITS ---
PROCEDURE: CT HEAD/BRAIN WO CON CLINICAL INDICATION: altered mental status Altered mental status, altered level of consciousness, confusion, disorientation COMPARISON: CT CT HEAD/BRAIN WO CON from 05/03/2019 TECHNIQUE: Axial images obtained. All CT scans at the facility use one or more dose reduction, viz: automated exposure control, ma/kV adjustment per patient size (including targeted exams where dose is matched to indication, i.e. head), or iterative reconstruction technique. FINDINGS: No midline shift, mass effect, intracranial hemorrhage, hydrocephalus, or extra-axial fluid collection is evident. The vertex is not included on the exam. The study may be repeated at no additional charge to include the vertex if clinically desired. There has been a prior left-sided craniotomy in this occipital region with encephalomalacia change in the left cerebellar hemisphere superiorly. There is generalized atrophy with hypoattenuation of the periventricular white matter consistent with microangiopathic changes. The calvarium has an unremarkable appearance. No mastoid effusion. There is a trace air-fluid level in the right maxillary sinus and trace air-fluid levels also noted in the sphenoid sinus. IMPRESSION: 1. No acute intracranial findings. 2. The vertex is not included on the exam. Exam may be repeated at no additional charge for inclusion of the vertex of clinically desired. 3. Prior left occipital craniotomy with encephalomalacia change in the left superior cerebellar region 4. Sinusitis Dictated by: Alex Pennington MD 06/20/2020 12:50 Alex Pennington MD in [place] 06/20/2020 12:50
--- NOTE | 2020-06-20 12:09 | XR_ITS ---
PROCEDURE: XR CHEST PORTABLE CLINICAL HISTORY: AMS Unresponsive COMPARISON: CR CXR2 XR chest AP from 01/18/2018 CR CXR2 XR chest AP from 03/12/2018 CR CXR1VP XR chest portable from 03/18/[address] CHEST WO CON from 04/10/2020 FINDINGS: The cardiomediastinal silhouette and pulmonary vascularity are within normal limits. The lungs are clear without infiltrates, suspicious nodules, or pleural effusions. Mom is present in the right lung base. No acute bony findings. IMPRESSION: No acute findings. Dictated by: Alex Pennington MD 06/20/2020 12:46 Alex Pennington MD in [place] 06/20/2020 12:46
[2020-06-20 12:18] LABS: Microscopic, Urine URINE MICROSCOPIC (MICROSCOPIC)
[2020-06-20 12:21] LABS: Basophils # 0.1 K/mm3 (0-0.2); Basophils % 0.6 % (0.1-2.0); Eosinophils # 0.2 K/mm3 (0.0-0.4); Eosinophils % 1.3 % (0.1-12.0); Hematocrit 43.1 % (37.0-47.0); Hemoglobin 14.2 g/dL (12.2-16.2); Lymphocytes # 2.4 K/mm3 (0.7-4.5); Lymphocytes % 18.8 % (10-50); Mean Corpuscular HGB Conc 32.9 g/dL (31.8-35.4); Mean Corpuscular Hemoglobin 27.9 pg (27.0-31.2); Mean Corpuscular Volume 84.7 fl (81-99); Mean Platelet Volume 9.2 fl (7.4-10.4); Monocytes # 0.7 K/mm3 (0.1-1.0); Monocytes % 5.2 % (1.7-9.3); Neutrophils # 9.2 K/mm3 (1.8-7.8); Neutrophils % 73.9 % (37.0-80.0); Platelet Count 284 K/mm3 (142-424); Red Blood Count 5.08 M/mm3 (4.20-5.40); Red Cell Distribution Width 13.4 % (11.5-17.5); White Blood Count 12.5 K/mm3 (4.8-10.8)
[2020-06-20 12:22] LABS: Appearance,Urine CLEAR (Clear); Bilirubin,Urine Negative (Negative); Blood, Urine Negative (Negative); Color,Urine YELLOW (Yellow); Glucose,Urine (UA) Negative (Negative); Ketones,Urine Negative (Negative); Leukocyte Esterase,Urine Negative (Negative); Nitrate,Urine POSITIVE (Negative); Protein,Urine Negative (Negative); Urobilinogen,Urine 0.2 EU/dl (0.2)
[2020-06-20 12:22] LABS: Chloride 104 mmol/L (98-107); Sodium 139 mmol/L (136-145)
[2020-06-20 12:23] LABS: Potassium 4.8 mmoL/L (3.5-5.1)
[2020-06-20 12:25] LABS: Alanine Aminotransferase 12 U/L (12-78); Albumin/Globulin Ratio 1.1 (1.1-1.8); Alkaline Phosphatase 106 U/L (38-126); Anion Gap 12.8 mEq/L (5-15); Aspartate Amino Transferase 28 U/L (14-36); Bilirubin,Total 0.7 mg/dl (0.2-1.3); Blood Urea Nitrogen 14 mg/dl (7-17); Carbon Dioxide 27 mmol/L (22.0-30.0); Creatinine Clearance Estimated 64 mL/min (50-200); Estimated Glomerular Filt Rate 45 ml/min (>60); GFR (African American) 55 ML/MIN (>60); Globulin 3.6 g/dL (1.3-3.2); Total Protein,Serum 7.6 g/dl (6.3-8.2)
[2020-06-20 12:26] LABS: Calcium 9.8 mg/dl (8.4-10.2); Glucose 105 mg/dl (74-100)
--- NOTE | 2020-06-20 12:35 | PC.NURSE ---
Pt with rad. v/s delayed.
[2020-06-20 12:36] LABS: Bacteria,Urine 4+ /lpf; RBC,Urine Occasional #/hpf (0-3)
[2020-06-20 12:44] LABS: Coronavirus 19 IgG Antibody Negative (Negative); Coronavirus 19 IgM Antibody Negative (Negative)
--- NOTE | 2020-06-20 12:45 | ECG_ITS ---
APPROVED REPORT Exam: Resting ECG HR:90 bpm ECG Measurements Heart Rate 90 AXES RI 130 P 64 QRSd 70 QRS 59 QT 392 T 106 QTc 479 Conclusion Sinus rhythm with occasional premature ventricular complexes ST & T wave abnormality, consider anterolateral ischemia Prolonged QT Abnormal ECG Electronically signed by : Lobo Sen, 06/22/2020 13:52:51
--- NOTE | 2020-06-20 12:56 | PC.NURSE ---
Respiratory notified of G
[2020-06-20 12:57] LABS: Thyroid Stimulating Hormone 2.02 uIU/mL (0.465-4.68)
--- NOTE | 2020-06-20 13:12 | PC.NURSE ---
RT at bedside
--- NOTE | 2020-06-20 13:25 | PC.NURSE ---
calling dr walters at this time
--- NOTE | 2020-06-20 13:26 | PC.NURSE ---
dr burrows speaking with dr walters
[2020-06-20 13:29] LABS: ABG Base Excess -1.5 mmol/L (-2.4-2.3); ABG HCO3 22.6 mmhg (22.0-26.0); ABG Oxygen Saturation 96 % (90-100); ABG PCO2 33.5 mmhg (35.0-45.0); ABG PH 7.45 mmol/L (7.35-7.45); ABG PO2 74.9 mmhg (80-100); ABG TCO2 23.6 mmhg (23-27)
[2020-06-20 13:30] LABS: Allen's Test ACCEPTABLE; Oxygen ROOM AIR %; Source R RADIAL
--- NOTE | 2020-06-20 13:32 | PC.NURSE ---
Care management contacted about admission
--- NOTE | 2020-06-20 14:10 | PC.NURSE ---
Lab at bedside
--- NOTE | 2020-06-20 14:36 | PC.NURSE ---
Report called to Leatha NORTON
[2020-06-20 14:57] LABS: Lactic Acid 1.8 mmol/L (0.7-2.1)
--- NOTE | 2020-06-20 15:11 | HMH.PHAVTE ---
[facility] Pharmacy VTE Monitoring - Patient Demographics Admission date: 06/20/20 Report Date: 06/20/20 Time: 15:11 Allergies/Adverse Reactions: Patient Allergies erythromycin base Allergy (Verified 05/03/19 10:03) Unknown allergy reaction Penicillins Allergy (Verified 05/03/19 10:03) Unknown allergy reaction Height: 1.65 m Weight: 83.915 kg Patient Problems: Current Active Problems Altered mental status (Acute) UTI (urinary tract infection) (Acute) Sepsis (Acute) - VTE Risk Labs: VTE Related Lab Results Hgb 14.2 g/dL (12.2-16.2) 06/20/20 11:50 Hct 43.1 % (37.0-47.0) 06/20/20 11:50 Plt Count 284 K/mm3 (142-424) 06/20/20 11:50 BUN 14 mg/dl (7-17) 06/20/20 11:50 Creatinine 1.20 mg/dl (0.52-1.04) H 06/20/20 11:50 Estimated Creat Clear 64 mL/min (50-200) 06/20/20 11:50 Clinical Trial Participant: No - Prophylaxis VTE Prophylaxis Ordered?: Yes Types of VTE Prophylaxis: TEDS Knee High
--- NOTE | 2020-06-20 20:16 | HMH.HP ---
*Admission Date: 06/20/20 *Chief complaint: altered mental status *History of present illness: this pt presented to the ed -history obtained from [employer]/POA. She states that the patient complained last night about 830 that her right arm was numb. Asphalt Layer last saw her responsive at about 9:30 PM. She checked on her overnight and believed her to just be sleeping, but this morning at about 10 AM she noticed that she was unresponsive and would not wake up. Asphalt Layer thought she must of had another small stroke . She noticed that she had vomited sometime overnight and also been incontinent of urine, which is unusual for her. Her normal status is that she is mostly in bed, can sometimes get herself up independently to potty chair. Asphalt Layer says she had cancer in 2011, but is in remission. pt was found to have fever and abn ua in the ed and was admitted for ivf and abx [facility] History I have reviewed the patient's past medical history: Yes Medical History: Reports:: Cancer (LUNG/BRAIN), Hyperlipidemia, Hypertension, Lung Disease Denies:: Asthma, Atherosclerotic Heart Disease, Congestive Heart Failure, Chronic Obstructive Pulmonary Disease (COPD), Coronary Artery Disease, Cerebrovascular Accident, Diabetes Mellitus Type 1, Diabetes Mellitus Type 2, Gastroesophageal Reflux Disease(GERD), Gastrointestinal Bleed, MRSA, Palpitations, Renal Insufficiency, Seizures *Have you ever received a pneumonia vaccine?: No *Have you received a flu vaccine this season?: No Other Medical History: Reports: Anemia, Arthritis, Chemotherapy, Fibromyalgia, Radiation Therapy Other Surgeries: Yes: Appendectomy, Cancer Surgery, Cardiac Catheterization, Cholecystectomy, , Hysterectomy-Total Amputation: No Fractures: No - *Social History Smoking Status: Smoker, status unknown Tobacco Type: e-cigarettes # Packs/Day (cigarettes): 0 #Yrs smoked (if former smoker): 35 Alcohol Intake: never Alcohol Intake Frequency:: other Substance Use Type: denies use *Occupational Status:: disabled Housing: house Household Members: none *Travel in the last 8 weeks: None Family Hx:: Unable to obtain Review of Systems - Review of Systems Review of systems:: pertinent systems reviewed and negative unless documented below Meds Home Medications Medication Instructions Recorded Confirmed Type furosemide 20 mg tablet 20 mg PO DAILY #90 tab 11/08/18 11/25/18 Rx levothyroxine 50 mcg tablet 50 mcg PO DAILY #90 tab 11/08/18 11/25/18 Rx pravastatin 40 mg tablet 40 mg PO HS #90 tab 11/08/18 11/25/18 Rx [place]-3 Acid Ethyl Esters 4 cap PO DAILY 05/03/19 History predniSONE [Deltasone 20mg 20 mg PO BID 05/03/19 History tablet] predniSONE [Prednisone 5mg 5 mg PO DAILY 05/03/19 History Tab] terbinafine HCL [Terbinafine HCl] 250 mg PO DAILY 05/03/19 History amitriptyline 10 mg tablet 10 mg PO .COMPLEX #90 tab 04/12/20 Rx bupropion HCl 300 mg 24 hr tablet, 300 mg PO DAILY #90 tab 04/12/20 Rx extended release Aspirin [Low Dose Aspirin EC] 81 mg PO DAILY 06/20/20 06/20/20 History Allergies Allergy/AdvReac Type Severity Reaction Status Date / Time erythromycin base Allergy Unknown Verified 05/03/19 10:03 allergy reaction Penicillins Allergy Unknown Verified 05/03/19 10:03 allergy reaction Exam Vital signs and Labs for Last 24 Hours: Temp Pulse Resp BP Pulse Ox 100.5 F H 64 16 140/70 95 06/20/20 15:40 06/20/20 15:40 06/20/20 15:40 06/20/20 15:40 06/20/20 15:40 Laboratory Results - last 24 hr 06/20/20 11:50: WBC 12.5 H, RBC 5.08, Hgb 14.2, Hct 43.1, MCV 84.7, MCH 27.9, MCHC 32.9, RDW 13.4, Plt Count 284, MPV 9.2, Neut % (Auto) 73.9, Lymph % (Auto) 18.8, [place] % (Auto) 5.2, Eos % (Auto) 1.3, Baso % (Auto) 0.6, Neut # (Auto) 9.2 H, Lymph # (Auto) 2.4, [place] # (Auto) 0.7, Eos # (Auto) 0.2, Baso # (Auto) 0.1 06/20/20 11:50: Sodium 139, Potassium 4.8, Chloride 104, Carbon Dioxide 27, Anion Gap 12.8, BUN 14, Creatini
--- NOTE | 2020-06-20 20:28 | PC.NURSE ---
Pt has been asleep since arriving to floor. Pt is obtunded and only moans at times when being positioned in bed. Remains on room air. Pt's contacts were called after pt arrived to floor, w/ no answer. Pt has very dry areas to bilat feet and pictures are needing to be obtained as well as check on code status. Pt unable to verify this. Pt turned Q2H. Benoit cath to drain at bedside w/ clear jax urine noted. Safety in place for pt safety. Call marycruz w/in reach.
[2020-06-21] VITALS (7 sets, daily range): BP systolic 116–152; BP diastolic 60–88; PULSE 68–82; RESP 16–18; TEMP 36.7–39.2; O2SAT 92–98; BMI 26.9
--- NOTE | 2020-06-21 03:24 | PC.NURSE ---
Pt is obtunded and only moans at times when being positioned in bed. Lungs CTA. active BS in all quads. pt noted to have elevated temperature medicated per NOV. Ice packs appiled to armpits and groin. Pt turned Q2H. F/C draining clear yellow urine. bed alarm activated
[2020-06-21 06:29] LABS: Basophils # 0.1 K/mm3 (0-0.2); Basophils % 0.7 % (0.1-2.0); Eosinophils # 0.1 K/mm3 (0.0-0.4); Eosinophils % 0.7 % (0.1-12.0); Hematocrit 39.9 % (37.0-47.0); Hemoglobin 12.9 g/dL (12.2-16.2); Lymphocytes # 2.4 K/mm3 (0.7-4.5); Lymphocytes % 20.3 % (10-50); Mean Corpuscular HGB Conc 32.3 g/dL (31.8-35.4); Mean Corpuscular Hemoglobin 27.8 pg (27.0-31.2); Monocytes # 0.8 K/mm3 (0.1-1.0); Monocytes % 6.8 % (1.7-9.3); Neutrophils # 8.6 K/mm3 (1.8-7.8); Neutrophils % 71.6 % (37.0-80.0); Platelet Count 251 K/mm3 (142-424); Red Blood Count 4.64 M/mm3 (4.20-5.40); Red Cell Distribution Width 13.4 % (11.5-17.5)
[2020-06-21 06:34] LABS: Chloride 105 mmol/L (98-107); Potassium 4.8 mmoL/L (3.5-5.1); Sodium 137 mmol/L (136-145)
[2020-06-21 06:37] LABS: Anion Gap 13.8 mEq/L (5-15); Blood Urea Nitrogen 16 mg/dl (7-17); Calcium 9.1 mg/dl (8.4-10.2); Carbon Dioxide 23 mmol/L (22.0-30.0); Creatinine Clearance Estimated 60 mL/min (50-200); Estimated Glomerular Filt Rate 45 ml/min (>60); GFR (African American) 55 ML/MIN (>60); Glucose 93 mg/dl (74-100)
--- NOTE | 2020-06-21 09:59 | HMH.PHAINT ---
MEDICATION RECONCILIATION COMPLETED ON PATIENT USING EXTERNAL FILL HISTORY FROM PHARMACY. -HIMA BURNHAM, UMAIRD
--- NOTE | 2020-06-21 10:00 | PC.NURSE ---
THIS RN RECEIVED A VERBAL CONSENT FROM SON, NAYANA MCGEE FOR PHOTOGRAPHS. 2ND RN VERIFIED, POLLO SEYMOUR RN. PHOTOS TAKEN, NOT ABLE TO PRINT DUE TO BROKEN PRINTER.
--- NOTE | 2020-06-21 10:24 | HMH.ACPN2 ---
Internal Medicine - PN: Subj *Date: 06/21/20 *Time: 08:45 Exam Vital signs and Labs for Last 24 Hours: Temp Pulse Resp BP Pulse Ox 100.4 F H 77 16 117/68 92 L 06/21/20 07:59 06/21/20 07:59 06/21/20 07:59 06/21/20 07:59 06/21/20 07:59 Laboratory Results - last 24 hr 06/20/20 11:50: WBC 12.5 H, RBC 5.08, Hgb 14.2, Hct 43.1, MCV 84.7, MCH 27.9, MCHC 32.9, RDW 13.4, Plt Count 284, MPV 9.2, Neut % (Auto) 73.9, Lymph % (Auto) 18.8, [place] % (Auto) 5.2, Eos % (Auto) 1.3, Baso % (Auto) 0.6, Neut # (Auto) 9.2 H, Lymph # (Auto) 2.4, [place] # (Auto) 0.7, Eos # (Auto) 0.2, Baso # (Auto) 0.1 06/20/20 11:50: Sodium 139, Potassium 4.8, Chloride 104, Carbon Dioxide 27, Anion Gap 12.8, BUN 14, Creatinine 1.20 H, Estimated Creat Clear 64, Estimated GFR 45 L, Est GFR ( Amer) 55 L, Glucose 105 H, Calcium 9.8, Total Bilirubin 0.7, AST 28, ALT 12, Alkaline Phosphatase 106, Total Protein 7.6, Albumin 4.0, Globulin 3.6 H, Albumin/Globulin Ratio 1.1, TSH 2.02 06/20/20 11:50: SARS-CoV-2 IgG Ab (Rapid) Negative, SARS-CoV-2 IgM Ab (Rapid) Negative 06/20/20 12:14: Urine Color Yellow, Urine Appearance Clear, Urine pH 8.0, Ur Specific [place] 1.020, Urine Protein Negative, Urine Glucose (UA) Negative, Urine Ketones Negative, Urine Blood Negative, Urine Nitrate Positive, Urine Bilirubin Negative, Urine Urobilinogen 0.2, Ur Leukocyte Esterase Negative, Urine RBC Occasional, Urine WBC 10-20, Ur Squamous Epith Cells 3-5, Urine Bacteria 4+ 06/20/20 12:18: Specimen Source R radial, O2 % Room air, ABG pH 7.45, ABG pCO2 33.5 L, ABG pO2 74.9 L, ABG HCO3 22.6, ABG Total CO2 23.6, ABG O2 Saturation 96, ABG Base Excess -1.5, Alex Test Acceptable 06/20/20 14:20: Lactate 1.8 06/21/20 06:00: WBC 12.0 H, RBC 4.64, Hgb 12.9, Hct 39.9, MCV 86.0, MCH 27.8, MCHC 32.3, RDW 13.4, Plt Count 251, MPV 9.0, Neut % (Auto) 71.6, Lymph % (Auto) 20.3, [place] % (Auto) 6.8, Eos % (Auto) 0.7, Baso % (Auto) 0.7, Neut # (Auto) 8.6 H, Lymph # (Auto) 2.4, [place] # (Auto) 0.8, Eos # (Auto) 0.1, Baso # (Auto) 0.1 06/21/20 06:00: Sodium 137, Potassium 4.8, Chloride 105, Carbon Dioxide 23, Anion Gap 13.8, BUN 16, Creatinine 1.20 H, Estimated Creat Clear 60, Estimated GFR 45 L, Est GFR ( Amer) 55 L, Glucose 93, Calcium 9.1 I & O for Last 24 hours: Intake & Output 06/18/20 06/19/20 06/20/20 06/21/20 11:59 11:59 11:59 11:59 Intake Total 1358 / 1358 Output Total 825 / 825 Balance 533 / 533 Weight 185 lb 162 lb 0.636 oz Microbiology Reports for the Last 24 Hours: Microbiology 06/20/20 12:14 Urine,Catheterized Urine Culture - Preliminary Gram Negative Rods - Constitutional no acute distress - *Routine HEENT Exam Head: Present: other Eye: Present: PERRL ENT: Present: mucous membranes moist - *Routine Neck Exam Present: supple. Absent: lymphadenopathy - *Routine Respiratory Exam Present: CTA bilaterally - *Routine Cardiovascular Exam Present: RRR - *Routine Abdominal Exam Present: soft, normoactive bowel sounds. Absent: tenderness - *Routine Extremities Exam Present: normal capillary refill. Absent: cyanosis, clubbing, edema - *Routine Skin Exam Present: warm. Absent: rash Comments: pustular changes to jerardo soles - *Routine Neurological Exam Present: altered mental status - Routine Psychiatric Exam Present: unable to assess Assessment and Plan (1) UTI (urinary tract infection) Status: Acute Qualifiers: Urinary tract infection type: site unspecified Hematuria presence: without hematuria Qualified Code(s): N39.0 - Urinary tract infection, site not specified Category: Medical Code(s): N39.0 - Urinary tract infection, site not specified (2) SIRS (systemic inflammatory response syndrome) Status: Acute Category: Medical Code(s): R65.10 - Systemic inflammatory response syndrome (SIRS) of non-infectious origin without acute organ dysfunction (3) Encephalomalacia Status: Acute [place]
--- NOTE | 2020-06-21 10:38 | PC.NURSE ---
PATIENT'S POA AT BEDSIDE, PROVIDED PAPERWORK, THIS RN COPIED PAPERS AND FILED IN PATIENT'S CHART. POA IS VERY CONCERNED OF PATIENT'S MENTAL STATUS AND UNABLE TO SPEAK. POA IS ALSO CONCERNED OF PATIENT'S SKIN ON FEET AND AREA UNDER FINGERNAILS. THIS RN LEFT A VOICEMAIL WITH ROSANGELA LEIGH. AWAITING A PHONE CALL BACK.
--- NOTE | 2020-06-21 18:55 | CT_ITS ---
PROCEDURE: CT HEAD/BRAIN WO CON CLINICAL INDICATION: RIGHT SIDED FLACID AND APHASIA COMPARISON: CT CT HEAD/BRAIN WO CON from 06/20/2020 TECHNIQUE: Axial images obtained. All CT scans at the facility use one or more dose reduction, viz: automated exposure control, ma/kV adjustment per patient size (including targeted exams where dose is matched to indication, i.e. head), or iterative reconstruction technique. FINDINGS: No midline shift, mass effect, intracranial hemorrhage, hydrocephalus, or extra-axial fluid collection is evident. There is generalized atrophy with hypoattenuation of the periventricular white matter consistent with microangiopathic changes.. There are encephalomalacia changes in the left cerebellar hemisphere. This is not significantly changed. Craniotomy defect is present in the left occipital bone at this area of encephalomalacia. Mucosal thickening or small air-fluid level noted in the sphenoid sinus on the right posteriorly. IMPRESSION: No change with no acute intracranial findings. Dictated by: Alex Pennington MD 06/22/2020 06:19 Alex Pennington MD in [facility] 06/22/2020 06:19
--- NOTE | 2020-06-21 19:24 | PC.NURSE ---
pt off the floor for ct
--- NOTE | 2020-06-21 20:06 | PC.NURSE ---
[facility] AT BEDSIDE, PER SON, PATIENT HAS HAD SOME MENTAL DECLINE. PATIENT STAYS IN BED FOR MAJORITY OF DAY. WHEN HE LAST SAW PATIENT, PATIENT WAS ABLE TO SPEAK. POA BROUGHT PATIENT INTO HOSPITAL DUE TO PATIENT NOT BEING ABLE TO SPEAK AND WEAKNESS. SON REQUESTED FOR MD TO PHONE. THIS RN PROVIDED INFORMATION TO DR. SOFY MD STATED HE WOULD CALL. AT START OF SHIFT, PATIENT WAS NON VERBAL, OPENED EYES WITH TOUCH AND NAME. PATIENT CONTINUED TO SLEEP THROUGHOUT THIS RN SHIFT. AT 16OO PATIENT BECAME MORE ALERT. THIS RN PERFORMED A HEAD TO TOE ASSESSMENT. PATIENT RESPONDED BY BLINKING TO THIS RN. PATIENT WOULD NOT LOOK AT PERSONS STANDING ON HER RIGHT SIDE, PATIENT WOULD NOT SQUEEZE OR HOLD UP RIGHT UPPER EXTREMITY. PATIENT WOULD SQUEEZE THIS RN FINGERS WHEN ASKED TO FROM LEFT HAND. PATIENT WOULD NOT LIFT BILATERAL LOWER EXTREMITIES. WHEN ASKED TO WIGGLE TOES, PATIENT WOULD WIGGLE TOES BILATERALLY. FACIAL DROOP ON RIGHT SIDE. PER DR. GOETZ, OKAY TO DOCUMENT NIH. THIS RN REPORTED FINDINGS TO DR. SOFY MD CAME TO FLOOR AND ORDERED CT OF HEAD STAT. NO OTHER CONCERNS AT THIS TIME.
--- NOTE | 2020-06-21 20:34 | PC.NURSE ---
PER DR. GOETZ, DO NOT D/C [facility] AT THIS TIME.
--- NOTE | 2020-06-21 21:33 | CT_ITS ---
Procedure: CT ANGIO NECK CLINICAL HISTORY: cva Right-sided facial droop, flaccid, aphasic, unable to speak COMPARISON: CT CT HEAD/BRAIN WO CON from 04/29/[address] ANGIO HEAD from 06/21/2020 TECHNIQUE: IV Contrast: 100ml Optiray 350 Axial images obtained with sagittal and coronal reformats. All CT scans at the facility use one or more dose reduction, viz: automated exposure control, ma/kV adjustment per patient size (including targeted exams where dose is matched to indication, i.e. head), or iterative reconstruction technique. FINDINGS: CTA neck: Mild atheromatous changes are present involving the aortic arch. The great vessels are unremarkable with no significant stenosis proximally. Right carotid: Common carotid has an unremarkable appearance. Calcific plaque is present at the ostium of the right ICA with less than 25 percent stenosis. Small amount of calcific plaque also present involving the proximal ICA on the right with no significant stenosis. Left carotid: Eccentric calcific plaque is present at the left carotid bulb with approximately 50 percent stenosis.. The cervical portion of the internal carotid has an unremarkable appearance. Vertebral arteries: Left vertebral is dominant. Both vertebrals are patent. No stenotic lesions occlusion or dissection evident CT angio head: Unremarkable vertebrobasilar system. No aneurysm, AVM or major intracranial occlusive process. No venous thrombus apparent. Dural sinuses have an unremarkable appearance. No enhancing lesions are evident. Encephalomalacia changes present in the left cerebellar hemisphere with a craniotomy defect at this area. There are fibrotic changes in the right apex. IMPRESSION: 1. Mild atheromatous changes of the carotid arteries. There is 50 percent stenosis of the ostium of the left ICA. No high-grade stenosis, occlusion, or dissection. 2. Unremarkable CTA of the brain. Dictated by: Alex Pennington MD 06/22/2020 09:57 Alex Pennington MD in [facility] 06/22/2020 09:57
--- NOTE | 2020-06-22 | MR_ITS ---
PROCEDURE: MR HEAD/BRAIN WO CON CLINICAL INDICATION: CVA Right-sided facial droop with dilated pupils, unresponsive COMPARISON: No exams were available for comparison TECHNIQUE: Routine multiplanar multi echo sequences are performed without gadolinium enhancement. FINDINGS: No midline shift, mass effect, intracranial hemorrhage, or hydrocephalus is evident. There is no evidence of acute infarction. No restricted diffusion is apparent. There is a cystic area of encephalomalacia in the left cerebellar hemisphere. There has been a prior left-sided craniotomy at this site in the occipital bone. The cerebellopontine angles have an unremarkable appearance. There is mild diffuse atrophy. Extensive periventricular T2 white matter hyperintensities noted. This is without restricted diffusion. The pituitary, optic chiasm, corpus callosum, and craniocervical junction have an unremarkable appearance. There is mild diffuse atrophy. Small amount of fluid signal is present in the right mastoid sinus. No fluid levels in the paranasal sinuses. IMPRESSION: 1. No evidence of acute infarction. 2. Diffuse periventricular T2 white matter hyperintensity. This is nonspecific and could be related to severe gliotic change from microvascular disease. Differential diagnosis would include progressive multifocal leukoencephalopathy among other white matter diseases.. Dictated by: Alex Pennington MD 06/22/2020 15:32 Alex Pennington MD in [facility] 06/22/2020 15:32
[2020-06-22 04:00] VITALS: BP 131/81; PULSE 95; RESP 22; TEMP 38.4; O2SAT 97
[2020-06-22 05:10] VITALS: BMI 28.0
--- NOTE | 2020-06-22 06:51 | PC.NURSE ---
shift summary, no acute changes since prior assessment, pt did have a temperature of 101.2 at 0400 vitals, treated per NOV, temperature at 0655 was 100.8 rectally, active cooling measures applied,
[2020-06-22 06:56] VITALS: TEMP 38.2
[2020-06-22 08:00] VITALS: BP 135/68; PULSE 95; RESP 20; TEMP 39.2; O2SAT 99
--- NOTE | 2020-06-22 08:57 | PC.NURSE ---
All photos uploaded into the system by myself were taken by Otf Parker RN on 06/21/20 as part of the skin assessment.
--- NOTE | 2020-06-22 09:04 | CA_ITS ---
APPROVED REPORT EXAM: Comprehensive 2D, Doppler, and color-flow Echocardiogram Leak Hunter: Huong Chris RDCS Ht: 5 ft 6 in Wt: 168lbs BSA: 1.86 BP: 110/65 mmHg Indications: FEVER,UTI, 2D Dimensions LVOT 2.03 cm (M/F) 1.5-2.5 M-Mode Dimensions RVDd 2.39 cm (0.9-2.6) LVDd 5.04 cm (3.5-5.7) LVDs 4.02 cm (3.5-5.7) IVSd 0.95 cm (0.6-1.1) PWd 0.64 cm (0.6-1.1) EF (Teich) 41.20% FS 20.20% EDV (Teich) 120.50 mL ESV (Teich) 70.80 mL LV Diastology E/A Ratio 1.04 Mitral Valve MV A Velocity 72.00 (40-130 cm/s) Left Ventricle Left atrium is mildly enlarged, left ventricle is normal size, there is no concentric left ventricular hypertrophy, visually estimated ejection fraction 55% with no regional wall motion abnormality. Diastolic parameters are within normal range. Right Ventricle Right atrium and right ventricular normal size and contractility. Aortic Valve Aortic valve is minimally thickened and fibrosed. There is no aortic stenosis or aortic insufficiency. Mitral Valve Mitral valve leaflets are minimally thickened, there is no mitral stenosis, there is moderate mitral regurgitation. Tricuspid Valve Tricuspid valve grossly normal, there is mild tricuspid regurgitation, tricuspid regurgitation jet velocity is inadequate for calculation of the right ventricular systolic pressure. Pulmonic Valve Pulmonic valve is poorly visualized. Great Vessels Aortic root is normal size. Pericardium No significant pericardial effusion noted. Conclusion 1. Mildly enlarged left atrium, normal left ventricular size, visually estimated ejection fraction 55% with no regional wall motion abnormality, there is no concentric left ventricular hypertrophy, diastolic parameters are within normal range. 2. Moderate mitral and mild tricuspid regurgitation. 3. No significant pericardial effusion noted. Electronically signed by : Ernst Rodriguez, 06/22/2020 11:57:38
--- NOTE | 2020-06-22 09:08 | PC.NURSE ---
spoke with jeet- she wants pt transfered to [facility] and no more testing be done at [facility]. I discussed with pomatthew that we would try to transfer but we need a MD to accept pt. Explained with pomatthew that dr abdul has spoke with stroke team twice and they did not think the transfer was necessary and recommended echo,cta,mri. Jeet states no more testing at [facility] and she wants her transferred to [facility] and if anything happens while she was in [facility] we would be sorry, and she wants pt transferred now. Again explained to pomatthew we would have to have a dr accept pt and we would do our best.
--- NOTE | 2020-06-22 09:14 | PC.NURSE ---
RN aware of elevated rectal temp.
[2020-06-22 09:18] LABS: Basophils # 0.1 K/mm3 (0-0.2); Basophils % 0.4 % (0.1-2.0); Eosinophils # 0.2 K/mm3 (0.0-0.4); Eosinophils % 1.3 % (0.1-12.0); Hematocrit 40.9 % (37.0-47.0); Hemoglobin 13.4 g/dL (12.2-16.2); Lymphocytes # 1.9 K/mm3 (0.7-4.5); Lymphocytes % 13.3 % (10-50); Mean Corpuscular HGB Conc 32.8 g/dL (31.8-35.4); Mean Corpuscular Hemoglobin 28.4 pg (27.0-31.2); Mean Corpuscular Volume 86.6 fl (81-99); Mean Platelet Volume 9.2 fl (7.4-10.4); Monocytes # 1.1 K/mm3 (0.1-1.0); Monocytes % 7.9 % (1.7-9.3); Neutrophils # 10.9 K/mm3 (1.8-7.8); Platelet Count 232 K/mm3 (142-424); Red Blood Count 4.72 M/mm3 (4.20-5.40); Red Cell Distribution Width 13.5 % (11.5-17.5); White Blood Count 14.1 K/mm3 (4.8-10.8)
[2020-06-22 09:26] LABS: Chloride 108 mmol/L (98-107); Sodium 138 mmol/L (136-145)
[2020-06-22 09:29] LABS: Blood Urea Nitrogen 19 mg/dl (7-17); Creatinine Clearance Estimated 63 mL/min (50-200); Estimated Glomerular Filt Rate 50 ml/min (>60); GFR (African American) 61 ML/MIN (>60)
[2020-06-22 09:30] LABS: Calcium 9.1 mg/dl (8.4-10.2); Carbon Dioxide 13 mmol/L (22.0-30.0); Glucose 62 mg/dl (74-100)
--- NOTE | 2020-06-22 09:42 | HMH.ACPN2 ---
Internal Medicine - PN: Subj *Date: 06/22/20 *Time: 12:42 Interval history: Saw patient on rounds yesterday morning and again yesterday evening. The nurse had noted drowsiness and sleeping for most of the day. She aroused a bit late afternoon and right facial weakness was noted, along with right arm weakness. RUE weakness was noted preceding ER presentation. Initial CT brain showed surgical changes, remote, and was without acute changes. A repeat CT was taken and showed no interval changes. [facility] stroke service was notified. Spoke with Dr Hudson and CTA head/neck was ordered. The CTA revealed no vascular lesions. Atrophy and microvascular changes were noted on CT c/w patient's advanced age, and underlying chronic encephalomalacia was noted on the left cerebellar hemisphere. Spoke again with [facility] and patient felt to not be a candidate for intervention, with the negative CTA being important information. Aspirin 81 advised, and workup with MRI brain. It was relayed that there would be no advantage to having patient at [facility] at that time On subsequent recheck that night no further neurologic changes were noted; she remained non-verbal with flaccid right arm and inability to move right lower extremity. Had previous admit for uti and altered mental status in 2018. Resection was 2011; metastatic small cell lung ca. She was largely confined to bed over the last 3 years, was on occasion able to get up to potty chair. Relied on a concrete pile driver operator caregiver. Growing ecoli in urine. BC pending. Invanz on board. Febrile overnight. Exam Vital signs and Labs for Last 24 Hours: Temp Pulse Resp BP Pulse Ox 102.6 F H 95 H 20 135/68 99 06/22/20 08:00 06/22/20 08:00 06/22/20 08:00 06/22/20 08:00 06/22/20 08:00 Laboratory Results - last 24 hr 06/22/20 08:45: WBC 14.1 H, RBC 4.72, Hgb 13.4, Hct 40.9, MCV 86.6, MCH 28.4, MCHC 32.8, RDW 13.5, Plt Count 232, MPV 9.2, Neut % (Auto) 77.0, Lymph % (Auto) 13.3, Sumter % (Auto) 7.9, Eos % (Auto) 1.3, Baso % (Auto) 0.4, Neut # (Auto) 10.9 H, Lymph # (Auto) 1.9, Sumter # (Auto) 1.1 H, Eos # (Auto) 0.2, Baso # (Auto) 0.1 06/22/20 08:45: Sodium 138, Potassium 5.0, Chloride 108 H, Carbon Dioxide 13 L D, Anion Gap 22.0 H, BUN 19 H, Creatinine 1.10 H, Estimated Creat Clear 63, Estimated GFR 50 L, Est GFR ( Amer) 61, Glucose 62 L, Calcium 9.1 I & O for Last 24 hours: Intake & Output 06/19/20 06/20/20 06/21/20 06/22/20 23:59 23:59 23:59 23:59 Intake Total 453 / 453 1833 / 1833 560 / 560 Output Total 350 / 350 850 / 1300 450 / 450 Balance 103 / 103 983 / 533 110 / 110 Weight 174 lb 5 oz 162 lb 0.636 oz 168 lb 1 oz Microbiology Reports for the Last 24 Hours: Microbiology 06/20/20 12:14 Urine,Catheterized Urine Culture - Final Escherichia coli - Constitutional chronically ill appearing, somnolent - *Routine HEENT Exam Head: Absent: hematoma Eye: Absent: conjunctival icterus ENT: Present: mucous membranes moist - *Routine Neck Exam Present: supple, normal carotid upstroke. Absent: carotid bruit, tracheal deviation - *Routine Respiratory Exam Present: CTA bilaterally. Absent: accessory muscle use - *Routine Cardiovascular Exam Present: RRR - *Routine Abdominal Exam Present: soft, normoactive bowel sounds. Absent: tenderness - *Routine Extremities Exam Absent: cyanosis, pallor - *Routine Skin Exam Present: rash Comments: eczema changes noted on bilateral soles of feet changes appear chronic no warmth/odor/purulence - *Routine Neurological Exam Present: motor deficit, altered mental status, facial asymmetry. Absent: alert, oriented X3, moving all extremities, normal speech - Routine Psychiatric Exam Present: unable to assess Assessment and Plan (1) UTI (urinary tract infection) Status: Acute Qualifiers: Urinary tract infection type: site unspecified Hematuria presence: without hematuria Qualified Code(s): N39.0 - Urinary
--- NOTE | 2020-06-22 12:26 | PC.NURSE ---
0855: ELISE AYALA, PATIENT'S POA HAD PHONE THIS RN FOR AN UPDATE, THIS RN INFORMED POA THAT PATIENT HAD A TEMPERATURE THREW THE NIGHT AND THAT THIS RN WAS ADMINISTERING TYLENOL AND THAT THERE HAVE BEEN NO CHANGES SINCE THE POA'S VISIT THE PREVIOUS DAY. MS. AYALA STATED I GUESS I WON'T COME DOWN THERE SINCE SHE WON'T EVEN KNOW I AM THERE, JUST LIKE YESTERDAY. 0858: MRS. AYALA PHONED THIS RN AGAIN AND STATED THAT SHE COULD NOT HERE AND ASKED THIS RN TO PHONE BACK BECAUSE IT WAS AN EMERGENCY. 0858: THIS RN PHONED MRS. AYALA, NO ANSWER, MESSAGE WAS LEFT. 0902:MRS AYALA PHONED THIS RN BACK, STATED THAT WE ARE TO STOP ALL CARE, ALL TESTS. CECELIA AYALA WANTS PATIENT TRANSFERRED TO NOW. THIS RN EXPLAINED TO PO THAT DR. GOETZ HAD SPOKE WITH AND SHE WAS NOT A CANDIDATE FOR TRANSFER. THIS RN ALSO INFORMED MRS. AYALA THAT A SECOND CT WAS PERFORMED AND THE RESULTS WERE UNCHANGED. MRS. AYALA BEGAN TO RAISE HER VOICE AT THIS RN AND THE PHONE WAS GIVEN TO JOSE. JOSE SPOKE WITH [facility].
[2020-06-22 12:58] LABS: POC Glucose,Bedside 100 (70-110)
--- NOTE | 2020-06-22 13:16 | HMH.DCSUM ---
General - General Admission date:: 06/20/20 Discharge date: 06/22/20 HPI HPI: this pt presented to the ed -history obtained from garage laborer/POA. She states that the patient complained last night about 830 that her right arm was numb. House Admin last saw her responsive at about 9:30 PM. She checked on her overnight and believed her to just be sleeping, but this morning at about 10 AM she noticed that she was unresponsive and would not wake up. House Admin thought she must of had another small stroke . She noticed that she had vomited sometime overnight and also been incontinent of urine, which is unusual for her. Her normal status is that she is mostly in bed, can sometimes get herself up independently to potty chair. House Admin says she had cancer in 2011, but is in remission. pt was found to have fever and abn ua in the ed and was admitted for ivf and abx Hospital Course Hospital Course: Pateint admitted through ER with UTI and altered mental status. Saw patient on rounds yesterday morning and again yesterday evening. The nurse had noted drowsiness and sleeping for most of the day yesterday. She aroused a bit late afternoon and right facial weakness was noted, along with right arm weakness. RUE weakness was noted preceding ER presentation. Initial CT brain showed surgical changes, remote, and was without acute changes. A repeat CT was taken and showed no interval changes. [facility] stroke service was notified. Spoke with Dr Hudson and CTA head/neck was ordered. The CTA revealed no vascular lesions. Atrophy and microvascular changes were noted on CT c/w patient's advanced age, and underlying chronic encephalomalacia was noted on the left cerebellar hemisphere. Spoke again with [facility] and patient felt to not be a candidate for intervention, with the negative CTA being important information. Aspirin 81 advised, and workup with MRI brain. It was relayed that there would be no advantage to having patient at [facility] at that time On subsequent recheck that night no further neurologic changes were noted; she remained non-verbal with flaccid right arm and inability to move right lower extremity. Had previous admit for uti and altered mental status in 2018. Resection was 2011; metastatic small cell lung ca. She was largely confined to bed over the last 3 years, was on occasion able to get up to potty chair. Relied on a timers inspector caregiver. Urine culture growing out E.Coli Rocephin changed to invanz after she became febrile on the rocephin. Culture shows sensitivity to both agents. BC are negative prelim. CXR was clear on admission. Pt was excessively drowsy this morning. Unable to formally assess neurological deficit. POA requests transfer to [facility]. Graciously accepted by Dr Kerns. Objective Vital signs: Temp Pulse Resp BP Pulse Ox 102.6 F H 95 H 20 135/68 99 06/22/20 08:00 06/22/20 08:00 06/22/20 08:00 06/22/20 08:00 06/22/20 08:00 chronically ill appearing, somnolent - *Routine HEENT Exam Head: Present: atraumatic Eye: Absent: conjunctival icterus ENT: Present: mucous membranes moist - *Routine Neck Exam Present: normal carotid upstroke, trachea midline. Absent: tracheal deviation - *Routine Respiratory Exam Present: CTA bilaterally - *Routine Cardiovascular Exam Present: RRR - *Routine Abdominal Exam Present: soft, normoactive bowel sounds. Absent: tenderness - *Routine Extremities Exam Absent: cyanosis, pallor - *Routine Skin Exam Present: warm, rash Comments: eczema bilateral soles - *Routine Neurological Exam Present: motor deficit, altered mental status, facial asymmetry. Absent: alert, normal speech - Routine Psychiatric Exam Present: unable to assess Results Labs on day of discharge: Labs from last 24 hours 06/22/20 06/22/20 06/22/20 12:51 08:45 08:45 WBC 14.1 H RBC 4.72 Hgb 13.4 Hct 40.9 MCV 86.6 MCH 28.4 MCHC 32.8 RDW 13.5 Plt Coun
--- NOTE | 2020-06-22 15:06 | PC.NURSE ---
PATIENT'S POA, MRS. AYALA INFORMED THIS RN THAT SHE HAD CHANGED HER MIND AND DOES NOT WANT PATIENT TO GO TO . THIS RN EXPLAINED TO [place] THAT PATIENT HAS A DISCHARGE ORDER AND A BED AVAILABLE. POMontez STATED SHE WANTS HER TO STAY HERE BECAUSE OF THE COVID. THIS RN PHONED DR. GOETZ OFFICE 3X AND HAVE HAD NOT HEARD BACK THUS FAR. THIS RN PHONED THE DIRECTOR OF GLOBAL SALES AND REQUESTED THAT DR. GOETZ IS PAGED. THIS RN IS AWAITING RETURNED CALL. [facility] VAN DRIVER, PHONED DR. GOETZ OFFICE AND WAS ABLE TO GET THRU. THIS RN LEFT A MESSAGE. DR. GOETZ PHONED THIS RN BACK, SPOKE WITH GI AND GI IS AGREEABLE.
[2020-06-22 16:00] VITALS: BP 152/79; PULSE 88; RESP 16; TEMP 37.5; O2SAT 100
--- NOTE | 2020-06-22 19:43 | PC.NURSE ---
DURING TRANSFER FROM BED TO AMBULANCE STRETCHER, PATIENT OPENED EYES. PUPIL SIZE 2, PATIENT WAS ABLE TO FOLLOW MY COMMAND TO SQUEEZE MY FINGERS WITH HER LEFT HAND, LEFT SIDE MILD WEAKNESS. RIGHT SIDE FLACCID, BILATERAL. NO OTHER CONCERNS AT THIS TIME.
== END 2020-06-22 19:00 | disposition short-term general hospital (02) | DRG 689 ==
LOC: ER 13:32 → 2ND 06-21 06:21
PROVIDERS: Admitting Provider Emergency Medicine; Emergency Provider Emergency Medicine; PCP Emergency Medicine; Visit Provider Emergency Medicine
DX: N39.0 Urinary tract infection, site not specified (principal); I63.9 Cerebral infarction, unspecified; R65.10 Systemic inflammatory response syndrome (SIRS) of non-infectious origin without acute organ dysfunction; G81.91 Hemiplegia, unspecified affecting right dominant side; I10 Essential (primary) hypertension; E78.5 Hyperlipidemia, unspecified; E03.9 Hypothyroidism, unspecified; B96.20 Unspecified Escherichia coli [E. coli] as the cause of diseases classified elsewhere; R29.810 Facial weakness; G93.89 Other specified disorders of brain; Z88.0 Allergy status to penicillin; Z88.1 Allergy status to other antibiotic agents; Z79.899 Other long term (current) drug therapy
CPT/HCPCS: 36415; 70450; 70496; 70498; 70551; 71045; 80048; 80053; 81001; 82803; 82962; 83605; 84443; 85025; 86328; 87040; 87086; 87088; 87186; 93005; 93306; 96365; 96375; 99284; J1335; Q9967